=== PATIENT | female | born 1955 | race Caucasian/White ===

== ENCOUNTER 2016-12-11 21:02 | Emergency (ER) | payer MEDICARE, OTHER ==
--- NOTE | 2016-12-11 21:31 | ED ---
General Adult HPI - General Chief complaint: Fall Stated complaint: FALL Time Seen by Provider: 12/11/16 21:05 Source: patient, RN notes reviewed Mode of arrival: EMS Limitations: no limitations - History of Present Illness Initial comments: Patient is a pleasant 61-year-old female presenting to the emergency department following a fall. Incident occurred just prior to arrival. Patient tripped while carrying [place] food and landed on outstretched left arm. Patient has discomfort of her left upper arm. Discomfort increases with movement. No other area of injury. No head injury or loss of consciousness although patient did strike her nose. No chest pain or dyspnea. No neck or back pain. No abdominal pain. No other extremity injury. No history of injury to this area previously. - Related Data Home Medications Medication Instructions Recorded Confirmed Acetaminophen Tab [Tylenol Tab] 1,000 mg PO BID PRN 12/17/14 12/11/16 Alendronate Sodium 70 mg PO SA 12/17/14 12/11/16 Ascorbic Acid [Vitamin C] 1,000 mg PO DAILY 12/17/14 12/11/16 Aspirin 81 mg PO DAILY 12/17/14 12/11/16 Cyanocobalamin [Vitamin B-12] 1,000 mcg PO DAILY 12/17/14 12/11/16 Hydrochlorothiazide [Hydrodiuril] 25 mg PO DAILY 12/17/14 12/11/16 Ibuprofen [Motrin] 800 mg PO Q8H PRN 12/17/14 12/11/16 Magnesium 500 mg PO DAILY 12/17/14 12/11/16 Multivitamin/Iron/Folic Acid 1 tab PO DAILY 12/17/14 12/11/16 [Centrum Complete Multivit Tab] Omeprazole [PriLOSEC] 20 mg PO DAILY 12/17/14 12/11/16 Chlorthalidone 25 mg PO DAILY 12/11/16 12/11/16 Fluticasone Nasal [place] [Flonase 2 spr EA NOSTRIL DAILY PRN MDD ` 12/11/1612/11 Nasal [place]] Loratadine [Claritin] 10 mg PO DAILY 12/11/16 12/11/16 Previous Rx's Medication Instructions Recorded Hydrocodone/Acetaminophen [[place] 2 each PO Q6HR PRN #20 tab 12/11/16 5-325] Allergies Allergy/AdvReac Type Severity Reaction Status Date / Time morphine Allergy Itching Verified 12/11/16 21:22 oxycodone HCl Allergy Hallucinati Verified 12/11/16 21:22 [From OxyContin] ons Review of Systems ROS Statement: Those systems with pertinent positive or pertinent negative responses have been documented in the HPI. ROS Other: All systems not noted in ROS Statement are negative. Constitutional: Denies: fever Eyes: Denies: eye pain ENT: Denies: ear pain Respiratory: Denies: cough Cardiovascular: Denies: chest pain Endocrine: Denies: fatigue Gastrointestinal: Denies: abdominal pain Genitourinary: Denies: dysuria Musculoskeletal: Denies: back pain Skin: Denies: rash Neurological: Denies: headache Past Medical History Past Medical History: GERD/Reflux, Hypertension, Osteoarthritis (OA) Additional Past Medical History / Comment(s): MIGRAINE HEADACHE History of Any Multi-Drug Resistant Organisms: None Reported Past Surgical History: Back Surgery, Section, Tubal Ligation Additional Past Surgical History / Comment(s): back surgery X5 Past Anesthesia/Blood Transfusion Reactions: No Reported Reaction Past Psychological History: No Psychological Hx Reported Smoking Status: Former smoker Past Alcohol Use History: Occasional Past Drug Use History: None Reported - Past Family History Mother Family Medical History: Cancer Additional Family Medical History / Comment(s): LUNG CANCER General Exam Limitations: no limitations General appearance: alert, in no apparent distress Head exam: Present: atraumatic Eye exam: Present: normal appearance, PERRL ENT exam: Present: normal oropharynx Neck exam: Present: normal inspection. Absent: tenderness Respiratory exam: Present: normal lung sounds bilaterally Cardiovascular Exam: Present: regular rate, normal rhythm Expanded Peripheral pulses: 2+: Radial (R), Radial (L) GI/Abdominal exam: Present: soft. Absent: tenderness Extremities exam: Present: tenderness (Moderate tenderness left proximal humerus region. Distally the extremity is neurovascular intact.). Absent: full ROM (Decreased range of motion left shoulder secondary to pain) Back exam: Absent: tenderness Neurological exam: Present: alert. Absent: motor sensory deficit Psychiatric exam: Present: normal affect, normal mood Skin exam: Present: normal color Course Vital Signs 12/11/16 21:05 Temperature 96.8 F L Pulse Rate 81 Respiratory 18 Rate Blood Pressure 169/80 O2 Sat by Pulse 100 Oximetry Medical Decision Making - Medical Decision Making Patient reevaluated and updated. - Radiology Data Radiology results: image reviewed (X-ray left humerus shows suspected fracture. Tuberosity. There also appears to be fracture at the proximal humerus just inferior to the humeral head.) Disposition Clinical Impression: Proximal humerus fracture Disposition: HOME SELF-CARE Condition: Stable Instructions: Proximal Humerus Fracture (ED) Additional Instructions: Please follow-up with orthopedics in the beginning of the week. Use your sling. Ice to affected area. Return for increased pain, swelling, other areas of injury or concern or worsening symptoms. Prescriptions: Hydrocodone/Acetaminophen [[place] 5-325] 2 each PO Q6HR PRN #20 tab PRN Reason: Pain Referrals: Idris Kapadia DO [Primary Care Provider] - 1-2 days Time of Disposition: 22:37
--- NOTE | 2016-12-11 22:07 | XR ---
EXAMINATION TYPE: XR humerus LT DATE OF EXAM: 12/11/2016 CLINICAL HISTORY: pain TECHNIQUE: Frontal and lateral images of the left humerus are obtained. Examination is limited by p atient positioning. COMPARISON: None. FINDINGS: Examination is limited. Suspect fracture in the region of the greater tuberosity. This can be confirmed with CT. AC joint appears to be grossly intact as does the glenohumeral joint. IMPRESSION: Examination is limited. Suspect fracture in the region of the greater tuberosity. This can be confirm ed with CT.
[2016-12-11] MEDS ORDERED: HYDROcodone/APAP 5-325MG 1 EACH TAB PO STA (22:35)
[2016-12-11 23:24] VITALS: BP 100/56; PULSE 76; RESP 16; TEMP 96.9
== END 2016-12-11 23:34 | disposition home or self-care (01) ==
LOC: EC 21:02
DX: S42.202A Unspecified fracture of upper end of left humerus, initial encounter for closed fracture (principal); K21.9 Gastro-esophageal reflux disease without esophagitis; I10 Essential (primary) hypertension; M19.90 Unspecified osteoarthritis, unspecified site; Z88.5 Allergy status to narcotic agent; Z79.82 Long term (current) use of aspirin; Z79.899 Other long term (current) drug therapy; Z87.891 Personal history of nicotine dependence; W01.0XXA Fall on same level from slipping, tripping and stumbling without subsequent striking against object, initial encounter
CPT/HCPCS: 99284

== ENCOUNTER → 2017-02-21 | Outpatient (CLI) | payer MEDICARE ==
--- NOTE | 2017-02-21 14:42 | MR ---
EXAMINATION TYPE: MR knee LT wo con DATE OF EXAM: 02/21/2017 COMPARISON: NONE HISTORY: Left knee pain per order. Pain, swelling, and locking sensation for 2 months after twisting injury per patient. TECHNIQUE: Multiplanar, multisequence images of the left knee is performed without IV contrast. FINDINGS: MEDIAL MENISCUS: Anterior horn is intact without tear. Some faint central increased signal posterior horn of medial meniscus does not extend to articular surface. LATERAL MENISCUS: Anterior horn is intact without tear. Posterior horn shows marked diffuse increased signal with oblique linear cleft consistent with complex full-thickness meniscal tear along posterio r and lateral aspect. CRUCIATE LIGAMENTS: The anterior and posterior cruciate ligaments are intact and unremarkable. COLLATERAL LIGAMENTS: The medial collateral ligament and lateral collateral ligament complex are inta ct and unremarkable. EXTENSOR MECHANISM: Visualized quadriceps and patellar tendons are intact. EFFUSION: There is moderate size suprapatellar joint effusion. POPLITEAL CYST: There is a large popliteal/carlson cyst measuring 8.1 cm craniocaudal dimension on sagi ttal image 22 some fluid extends inferiorly suggesting leak. TRICOMPARTMENT SPACES: There is moderate tricompartment joint space loss. There is minimal spurring. CARTILAGE: There is chondromalacia patella with marked thinning of articular cartilage along posterio r patellar pole inferior aspect at site of most prominent joint space loss with near full-thickness c artilaginous loss is present. There is marked cartilaginous loss medial tibiofemoral compartment. BONE MARROW SIGNAL: There is heterogeneous increased T2 signal consistent osseous contusion involving the distal lateral femoral epicondyle. OTHER: No additional significant abnormality is appreciated. IMPRESSION: 1. Complex full-thickness tear posterior horn of lateral meniscus. 2. Intrasubstance tear posterior horn of medial meniscus. 3. Large leaking popliteal cyst. 4. Moderate tricompartment degenerative changes most prominent medial tibiofemoral and patellofemoral compartments. 5. Mild residual osseous contusion or bone marrow edema involving distal lateral femoral epicondyle. 6. Small to moderate-sized suprapatellar joint effusion.
== END | disposition home or self-care (01) ==
LOC: RADMRIMAIN 11:16
PROVIDERS: ATTEND Orthopaedic Surgery
DX: S83.282A Other tear of lateral meniscus, current injury, left knee, initial encounter (principal); S83.242A Other tear of medial meniscus, current injury, left knee, initial encounter; M66.0 Rupture of popliteal cyst

== ENCOUNTER → 2017-03-01 | Outpatient (CLI) | payer MEDICARE ==
[2017-03-01 10:07] LABS: EKG EKG PERFORMED
[2017-03-01 10:39] LABS: Basophils % (A) 1 %; CH 31.9; CHCM 36.4; Eosinophils # (A) 0.1 k/uL (0-0.7); Eosinophils % (A) 2 %; HCT 35.8 % (34.0-46.0); HDW 2.66; HGB 12.5 gm/dL (11.4-16.0); Luc # (Auto) 0.17; Luc % (Auto) 2; Lymphocytes # (A) 2.1 k/uL (1.0-4.8); Lymphocytes % (A) 28 %; MCH 30.7 pg (25.0-35.0); MCHC 34.7 g/dL (31.0-37.0); MCV 88.2 fL (80.0-100.0); Mean Platelet Volume 7.2; Monocytes # (A) 0.6 k/uL (0-1.0); Monocytes % (A) 8 %; Neutrophils # (A) 4.6 k/uL (1.3-7.7); Neutrophils % (A) 60 %; RBC 4.06 m/uL (3.80-5.40); RDW 13.8 % (11.5-15.5); WBC 7.6 k/uL (3.8-10.6); WBC (Perox) 7.43
[2017-03-01 10:41] LABS: Anion Gap 10 mmol/L; Carbon Dioxide 28 mmol/L (22-30); Chloride 100 mmol/L (98-107); Potassium 3.9 mmol/L (3.5-5.1); Sodium 138 mmol/L (137-145)
== END | disposition home or self-care (01) ==
LOC: LABPAT 09:51
PROVIDERS: ATTEND Orthopaedic Surgery
DX: Z01.810 Encounter for preprocedural cardiovascular examination (principal); Z01.818 Encounter for other preprocedural examination; M23.92 Unspecified internal derangement of left knee
CPT/HCPCS: 80051; 85025; 93005

== ENCOUNTER → 2017-09-25 | Outpatient (CLI) | payer MEDICARE | END | disposition home or self-care (01) | LOC: LABPAT 11:23 | PROVIDERS: ATTEND Orthopaedic Surgery | DX: Z01.812 Encounter for preprocedural laboratory examination (principal) | CPT/HCPCS: 87070 ==

== ENCOUNTER 2017-10-31 08:00 | Inpatient (IN) | payer MEDICARE ==
--- NOTE | 2017-10-30 09:07 | HP ---
HISTORY AND PHYSICAL CHIEF COMPLAINT: Left knee pain. HISTORY OF PRESENT ILLNESS: The patient is a 62-year-old retired female who presents with progressive left knee pain secondary to osteoarthrosis. It has worsened over the past 6 months. She has increased pain with standing from a seated position. She notes it severely limits her. She has had a previous arthroscopy in addition to injections with only partial temporary relief. PAST MEDICAL HISTORY: Significant for arthritis, osteoporosis, hypertension, reflux disease. PAST SURGICAL HISTORY: Significant for multiple previous back surgeries along with right knee arthroscopy. CURRENT MEDICATIONS: 1. Aspirin. 2. Fioricet. 3. Ibuprofen. 4. Flonase. 5. Fosamax. 6. Loratadine. 7. Prilosec. ALLERGIES: She has allergies to MORPHINE and OXYCODONE. FAMILY HISTORY: Negative. SOCIAL HISTORY: Significant for social alcohol use. She also notes she quit smoking in 1979. REVIEW OF SYSTEMS: Sixteen-point review of systems otherwise reviewed and is noncontributory. PHYSICAL EXAMINATION: On examination, the patient is approximately 5 feet 7 inches, 220 pounds of endomorphic habitus. HEENT exam is nonfocal. Neck is supple. She has painless passive motion of her left hip. Straight leg raise is negative. Active motion left knee -12 to 95 degrees of flexion. She has a moderate effusion. She is tender about the lateral joint line. Collaterals stable, Aldo's negative, Kkee's is equivocal. Active motion -12 to 95 degrees of flexion. She has genu valgum alignment. Her distal neurovascular exam appears to be intact in the left lower extremity. X-rays to include weightbearing notch, lateral and Merchant views of the left knee obtained in the office show severe lateral compartment narrowing. IMPRESSION: 1. Left knee severe lateral compartment osteoarthrosis. 2. Increased body mass index of 34.46. RECOMMENDATIONS: I talked to the patient at length regarding her condition and treatment options. At this point, she is quite symptomatic because of pain related to her osteoarthrosis despite extensive conservative measures. After thorough discussion, she opts to proceed with surgery. We will plan to proceed with left total knee arthroplasty. We will institute DVT prophylaxis postoperatively. MMODL / IJN: [id number] /
[~2017-10-31 08:00] MED LIST: ACETAMINOPHEN TAB 500 MG TAB PO ONE; DEXAMETHASONE SOD PHOSPHATE 10 MG/ML 1 ML VIAL IV ONE; MELOXICAM 7.5 MG TAB PO ONE; MIDAZOLAM 2 MG/2 ML VIAL IV PRN; ONDANSETRON 4 MG/2 ML VIAL IVP ONE; SCOPOLAMINE 1.5MG/72HR PATCH TRANSDERM ONE; TRANEXAMIC ACID 1,000 MG in SODIUM CHLORIDE 0.9% 50 ML IVPB ONE; ceFAZolin IN SWFI 2 GM/20 ML SYRINGE IVP ONE; fentaNYL (PF) 50 MCG/ML 2 ML AMP IV PRN
[2017-10-31] MEDS: LACTATED RINGERS 1,000 ML IV SCH (12:22)
[2017-10-31] MEDS ORDERED: ROPIVACAINE 1,100 MG, SODIUM CHLORIDE 0.9% 330 ML MISCELLANE PRN ×2 (13:13)
[2017-10-31] MEDS ORDERED: ROPIVACAINE 246.25 MG, EPINEPHrine 0.5 MG, KETOROLAC 30 MG, cloNIDine HCL/PF 80 MCG, WA... MISCELLANE ONE ×5 (14:11)
[2017-10-31] MEDS ORDERED: GLYCOPYRROLATE 0.2 MG/ML 2 ML VIAL ONE (14:42)
[2017-10-31] MEDS ORDERED: fentaNYL (PF) 50 MCG/ML 2 ML AMP ONE (14:42)
[2017-10-31] MEDS ORDERED: TRANEXAMIC ACID 1,000 MG/10 ML VIAL ONE (14:42)
[2017-10-31] MEDS ORDERED: NEOSTIGMINE 1 MG/ML 10 ML VIAL ONE (14:42)
[2017-10-31] MEDS ORDERED: HYDROmorphone (PF) 1 MG/ML ONE (14:42)
[2017-10-31] MEDS ORDERED: PROPOFOL 10 MG/ML 20 ML VIAL IV ONE (14:42)
[2017-10-31] MEDS ORDERED: SODIUM CHLORIDE 0.9% 100 ML BAG ONE (14:42)
[2017-10-31] MEDS ORDERED: SUCCINYLCHOLINE CHLORIDE 100 MG/5 ML SYR IV ONE (14:42)
[2017-10-31] MEDS ORDERED: LIDOCAINE 1% INJ 10MG/ML (20 ML MDV) ONE (14:42)
[2017-10-31] MEDS ORDERED: ROCURONIUM BROMIDE 10 MG/ML 10 ML VIAL IV ONE (14:42)
[2017-10-31] MEDS ORDERED: MIDAZOLAM 2 MG/2 ML VIAL ONE (14:42)
[2017-10-31] MEDS ORDERED: ceFAZolin 3,000 MG in SODIUM CHLORIDE 0.9% IRRIGATIO 3,000 ML IRRIGATION ONE (15:21)
[2017-10-31] MEDS ORDERED: HYDROmorphone 0.5 MG/0.5 ML SYRINGE IVP PRN ×2 (16:34)
[2017-10-31] MEDS ORDERED: ACETAMINOPHEN TAB 325 MG TAB PO PRN (16:34)
[2017-10-31] MEDS ORDERED: HYDROcodone/APAP 7.5-325MG 1 EACH TAB PO PRN (16:34)
[2017-10-31] MEDS ORDERED: NALOXONE 0.4 MG/ML 1 ML VIAL IV PRN (16:34)
[2017-10-31] MEDS ORDERED: MAGNESIUM HYDROXIDE 2,400 MG/10 ML CUP PO PRN (16:34)
[2017-10-31] MEDS ORDERED: ONDANSETRON 4 MG/2 ML VIAL IVP PRN (16:34)
--- NOTE | 2017-10-31 17:09 | P.OP ---
Date of Procedure: 10/31/17 Preoperative Diagnosis: Left knee severe tricompartmental osteoarthrosis Postoperative Diagnosis: Same Procedure(s) Performed: Left total knee arthroplasty-posterior stabilized-cemented Implants: Depuy Attune eyes 7 cemented posterior stabilized femoral component, size 6 cemented tibial component, 9 mm articular surface, 35 mm cemented patellar component. Anesthesia: GETA, regional, local Surgeon: David Hastings Parcel Contractor #1: Armando Lozada Estimated Blood Loss (ml): 50 Pathology: other (Bone fragments) Condition: stable Disposition: PACU Indications for Procedure: The patient is a 62-year-old female who presents with progressive left knee pain secondary to osteoarthrosis despite extensive conservative treatment. A discussion of the risks and benefits of operative intervention versus continued conservative measures was made with patient. She opted to proceed with surgery. Operative risks to include infection, neurovascular injury, development of blood clots, possible component loosening, possible component failure and need for subsequent procedures was discussed. Informed consent was obtained. Operative Findings: As below Description of Procedure: The patient was brought to the operating room, and after induction of general anesthesia the left lower extremity was prepped and draped in a normal fashion. The tourniquet was inflated to 270 mmHg. A longitudinal incision extending 3 finger breaths above the superior pole of the patella extending to the medial aspect the tibial tubercle was then made. Skin and subcutaneous tissues were divided sharply. Electrocautery was used for hemostasis. A medial parapatellar arthrotomy was then performed. The medial soft tissues to include the superficial and deep portions of the medial collateral ligament elevated subperiosteally. The patella was everted. A portion of the retropatellar fat pad was excised sharply. The lateral collateral as well as the popliteus was elevated subperiosteally off the lateral femoral upper condyle with electrocautery as she had a valgus deformity. The knee was flexed. The anterior cruciate ligament was sacrificed. Blunt retractors were placed. A starting hole was made in the distal femur 1 cm anterior to the posterior cruciate ligament origin. An intramedullary femoral guide was gently inserted planning on 5 valgus distal cut with 9 mm distal resection. The cutting block was pinned in place. The distal cut was then made. The posterior referencing sizing guide was utilized. I felt size 7 was most appropriate. 3 of external rotation was built into the system and verified off the trans-epicondylar axis and the posterior condyles. The cutting block was pinned in place. The anterior, posterior, and chamfer cuts were then made. The bone fragments were removed. The box guide was then placed. The box cut was made with a reciprocating saw the bone removed in one fragment. The trial size 7 posterior stabilized femoral component was then placed and was fully seated. There was good anterior to posterior medial to lateral fit. The distal peg holes were drilled. The trial component was then removed. Attention was then paid towards preparing the proximal tibia. An extra medullary guide was utilized in line with the tibial shaft and second metatarsal distally. A 3 posterior slope cutting block was utilized. I planned on 8 mm resection from the medial compartment. The cutting block was pinned in place. The proximal tibial cut was made. The bone was removed in one fragment. The tibia sized most appropriate size 6. The remnants of the medial and lateral menisci were excised at the capsular junction with electrocautery. The trial femoral and tibial components were placed along with a 9 mm articular surface. I was able to obtain full flexion and extension with good stability with varus and valgus stress. The tibial rotation was marked with electrocautery and lateral to medial one third of the tibial tubercle after several flexion and extension cycles. Attention was then paid towards preparing the patella. A patella reamer was utilized taking this down to 15 mm of bone stock. A good flush cut was made. The patella sized most appropriately 35 mm. The peg holes were drilled. The trial components placed. The knee was taken through range of motion. I had good patellofemoral tracking with no hands technique. The trial components were then removed. The tibia was prepared in the appropriate rotation with appropriate drill and keel punch. The posterior osteophytes off the distal femur were carefully removed with a curved osteotome. The bony surfaces were prepared with pulsatile lavage and dried. The flexion and extension gaps were checked and felt to be symmetric. The posterior soft tissues were injected with ropivacaine. The tibial component was then cemented in placed and was fully seated. Excess cement was removed. The femoral component was cemented in placed and was fully seated. Excess cement was removed. The trial articular surface was placed. The knee was put in full extension. The patella component was cemented place. After the cement had sufficiently hardened, the knee was again taken through range of motion. Again I was able to obtain full flexion and extension with good stability with varus and valgus stress. The trial articular surface was removed and the final 9 mm articular surface was placed. This was fully seated. Care was taken to avoid any soft tissue interposition. Pulsatile lavage was utilized. The tourniquet was deflated with a proximally 70 minutes total tourniquet time. The medial parapatellar arthrotomy was closed with #2 Ethibond suture. A drain was placed exiting laterally. Final hemostasis was obtained with electrocautery. The subcutaneous tissues were reapproximated interrupted 2-0 Vicryl sutures. The skin was reapproximated with 3-0 subcuticular strata fix suture. Skin tape and adhesive was applied. A sterile dressing was applied. The patient was awoken from general anesthesia and transferred to recovery room in good condition. Blood loss was estimated at 50 mL. No complications were incurred. Sponge and needle counts were correct at the end of the case.
--- NOTE | 2017-10-31 17:39 | XR ---
EXAMINATION TYPE: XR knee limited LT DATE OF EXAM: 10/31/2017 COMPARISON: NONE HISTORY: Postop knee surgery TECHNIQUE: 2 views FINDINGS: There is a total left knee prosthesis. Components appear in anatomic position. There is an anterior drain. IMPRESSION: No complicating process seen.
[2017-10-31 17:49] VITALS: BMI 36.8
[2017-10-31] MEDS: traMADol 50 MG TAB PO SCH (18:24)
[2017-10-31] MEDS: SENNOSIDES-DOCUSATE SODIUM 1 EACH TAB PO SCH (20:49)
--- NOTE | 2017-10-31 23:18 | CONS ---
CONSULTATION DATE OF CONSULTATION: October 31, 2017 REASON FOR CONSULTATION: Medical management requested by Dr. Hastings. CONSULTATION: This is a pleasant 62-year-old patient of Dr. Kapadia. Chronic stable medical conditions include GERD, hypertension, arthritis in other joints and migraines. The patient has undergone left total knee arthroplasty. Pain is controlled. Post procedure: No nausea, vomiting. No chest pain or short of breath. The patient has tolerated some supper. at the bedside. Denies any cardiac history. REVIEW OF SYSTEMS: CONSTITUTIONAL: None. HEENT none. Respiratory none. Cardiovascular none. Gastrointestinal heartburn. Genitourinary none. Musculoskeletal: Arthritic pain in other joints. Dermatological and hematologic, lymphatic none. Psychiatry none. Neurological none. PAST MEDICAL HISTORY: GERD, hypertension, osteoarthritis, migraines. PAST SURGICAL HISTORY: Back surgery, , tubal ligation, back surgery x5. SOCIAL HISTORY: The patient smoked for about 30 years. Stopped in 1999. Drinks anywhere from 12-18 beers a week. Lives with her . FAMILY HISTORY: Lung cancer. HOME MEDICATIONS: 1. Prilosec 20 mg a day. 2. Centrum Complete 1 tablet p.o. daily. 3. Magnesium 500 mg p.o. daily. 4. Claritin 10 mg p.o. daily. 5. Motrin 800 mg p.o. p.r.n. 6. Flonase 2 sprays each nostril daily p.r.n. 7. Vitamin B12 1000 mcg p.o. daily. 8. Chlorthalidone 25 mg p.o. daily. 9. Aspirin 81 mg p.o. daily. 10.Vitamin C 1000 mg p.o. daily. 11.Alendronate 70 mg p.o. on Saturdays. 12.Tylenol 1000 mg p.o. b.i.d. p.r.n. 13.Xarelto 10 mg p.o. daily. ALLERGIES: TO MORPHINE, OXYCODONE, PENICILLIN. PHYSICAL EXAMINATION: Temperature 97.4, pulse 77, respiratory rate 16, blood pressure 160/75, pulse ox 99% on room air. General appearance: Well built, BMI 36.8. Sitting on bed, comfortable. Eyes: Pupils are equal. Conjunctivae normal. HEENT: External appearance of nose and ears normal. Oral cavity normal. Neck: JVD not raised. Mass not palpable. Respiratory effort normal. Lungs are clear. Cardiovascular: 1st and 2nd sounds normal. No edema. ABDOMEN: Soft, nontender. Liver and spleen not palpable. Lymphatics: No lymph nodes palpable in neck or axillae. Psychiatry: Alert and oriented times three. Mood and affect normal. Neurological: Pupils equal. Cranial nerves grossly intact. Power and sensation grossly intact. Musculoskeletal: Dressing on the left knee. INVESTIGATIONS: None. ASSESSMENT: 1. Left total knee arthroplasty. 2. Gastroesophageal reflux disease. 3. Essential hypertension. 4. Primary osteoarthritis. 5. Obesity BMI 36.8. PLAN: Home medications are resumed. Pain control is in place. For DVT prophylaxis, patient is on Xarelto. Will have patient see a dietitian for weight loss measures. Care was discussed with the patient. Questions were answered. Thank you Dr. Hastings. Patient should follow up with Dr. Kapadia upon discharge. Copy to Dr. Kapadia. MMDEANL / SANKETN: [id number] /
[2017-11-01] MEDS: ceFAZolin IN SWFI 2 GM/20 ML SYRINGE IVP SCH ×2 (00:48→08:16)
[2017-11-01] MEDS: traMADol 50 MG TAB PO SCH ×5 (00:48→21:50)
[2017-11-01] MEDS: LACTATED RINGERS 1,000 ML IV SCH ×2 (07:34→21:51)
--- NOTE | 2017-11-01 07:35 | P.PN ---
Progress Note - Text Progress Note Date: 11/01/17 Postoperative day # 1 status post total knee arthroplasty, under spinal anesthesia, and adductor canal catheter placed for postoperative analgesia, currently at ropivacaine 0.2% 8 mL per hour and continuous infusion, visual analogue scale is 0/10, patient using oral pain medication for breakthrough pain. Assessment and plan= Acute postoperative pain, adductor canal catheter for pain control, pain is well controlled we'll continue the same management.
[2017-11-01 07:48] LABS: Basophils % (A) 0 %; Eosinophils % (A) 0 %; HCT 32.2 % (34.0-46.0); HGB 11.1 gm/dL (11.4-16.0); Lymphocytes # (A) 1.9 k/uL (1.0-4.8); Lymphocytes % (A) 14 %; MCH 30.7 pg (25.0-35.0); MCHC 34.3 g/dL (31.0-37.0); MCV 89.5 fL (80.0-100.0); Mean Platelet Volume 6.8; Monocytes # (A) 0.9 k/uL (0-1.0); Monocytes % (A) 7 %; Neutrophils % (A) 79 %; Platelet Count 290 k/uL (150-450); RDW 12.1 % (11.5-15.5)
[2017-11-01] MEDS: PANTOPRAZOLE 40 MG TABLET PO SCH (08:16)
[2017-11-01] MEDS: RIVAROXABAN 10 MG TAB PO SCH (08:16)
[2017-11-01] MEDS: LORATADINE 10 MG TAB PO SCH (08:16)
[2017-11-01] MEDS: CHLORTHALIDONE 25 MG TAB PO SCH (08:16)
[2017-11-01] MEDS: HYDROcodone/APAP 7.5-325MG 1 EACH TAB PO PRN ×3 (11:48→23:54)
[2017-11-01] MEDS: CYANOCOBALAMIN 500 MCG TAB PO SCH (11:49)
[2017-11-01] MEDS: ASCORBIC ACID 500 MG TAB PO SCH (11:49)
[2017-11-01] MEDS: MAGNESIUM OXIDE 400 MG TAB PO SCH (11:49)
[2017-11-01] MEDS: MULTIVITAMINS, THERA 1 EACH TAB PO SCH (11:49)
--- NOTE | 2017-11-01 12:03 | P.PN ---
Subjective Progress Note Date: 11/01/17 Principal diagnosis: Status post left total knee arthroplasty Patient seen today resting in her hospital chair, she appears comfortable. She' s ambulated with therapy. She notes some tightness in the leg occasionally. She denies any headaches, lightheadedness, chest pain or shortness of breath. Objective - Vital Signs Vital signs: Vital Signs Temp 97.8 F 11/01/17 07:35 Pulse 61 11/01/17 07:35 Resp 16 11/01/17 07:35 BP 113/75 11/01/17 07:35 Pulse Ox 97 11/01/17 07:35 Intake & Output 10/31/17 11/01/17 11/01/17 18:59 06:59 18:59 Intake Total 851 3138 Output Total 250 2150 1270 Balance 601 988 -1270 Weight 106.594 kg Intake: IV 851 Intake, IV Titration 978 Amount Lactated Ringers 1,000 ml 978 @ 50 mls/hr IV .Q20H KIMMIE Rx#:[id number] Oral 2160 Output: Drainage 180 120 Left Knee 180 120 Urine 200 1970 1150 2-way Urethral 1150 Estimated Blood Loss 50 Other: Voiding Method Indwelling Catheter Indwelling Catheter Indwelling Catheter # Voids 2 # Bowel Movements 0 - Exam Left lower extremity: Incision is clean, dry, and intact. The prineo tape is in good condition. There is minimal soft tissue swelling and ecchymosis surrounding the medial and lateral aspects of the incision. Calf is soft, no tenderness with palpation. Plantar flexion, dorsiflexion, EHL, FHL are intact. Sensory exam to light touch throughout the extremity is intact, dorsal pedis pulses 2+. - Labs CBC & Chem 7: 11/01/17 07:04 Labs: Abnormal Lab Results - Last 24 Hours (Table) 11/01/17 Range/Units 07:04 WBC 14.0 H (3.8-10.6) k/uL RBC 3.60 L (3.80-5.40) m/uL Hgb 11.1 L (11.4-16.0) gm/dL Hct 32.2 L (34.0-46.0) % Neutrophils # 11.0 H (1.3-7.7) k/uL Assessment and Plan Plan: Assessment: Postoperative day #1 status post left total knee arthroplasty Plan: Pain control, continue supportive oral medication GI and DVT prophylaxis, continue Xarelto 10 mg Continue her physical therapy Daily dressing changes/ice and elevate Encourage incentive spirometer Medical recommendations Discharge planning: Patient will be likely discharged home tomorrow Time with Patient: Less than 30
--- NOTE | 2017-11-01 18:58 | PN ---
PROGRESS NOTE DATE OF SERVICE: 11/01/2017 PRESENTING COMPLAINT: Left knee arthroplasty. INTERVAL HISTORY: Patient is status post left total knee arthroplasty, doing well. No nausea, vomiting. Pain is controlled. Did work with Therapy. REVIEW OF SYSTEMS: Done for constitutional, cardiovascular, GI, pulmonary; relevant findings as above. CURRENT MEDICATIONS: Reviewed. PHYSICAL EXAMINATION: Temperature 97.8, pulse 61, respiration 16, blood pressure 113/75, pulse ox 97% on room air. GENERAL APPEARANCE: Lying in bed, comfortable. EYES: Pupils equal. Conjunctivae normal. HEENT: External appearance of nose and ears normal. Oral cavity normal. NECK: JVD not raised. Mass not palpable. RESPIRATORY: Effort normal. Lungs are clear. CARDIOVASCULAR: First and second sounds normal. No edema. ABDOMEN: Soft, nontender. Liver and spleen not palpable. PSYCHIATRY: Alert and oriented x3. Mood and affect normal. INVESTIGATIONS: White count 14, hemoglobin 11.1. ASSESSMENT: 1. Left total knee arthroplasty. 2. Gastroesophageal reflux disease. 3. Essential hypertension. 4. Primary osteoarthritis. 5. Obesity; body mass index 36.8. PLAN: Patient is doing well. Continue current medication and treatment plan. MMODL / IJN: [id number] /
[2017-11-01] MEDS: SENNOSIDES-DOCUSATE SODIUM 1 EACH TAB PO SCH (20:46)
[2017-11-02] MEDS: traMADol 50 MG TAB PO SCH ×4 (07:51→21:12)
[2017-11-02] MEDS: HYDROcodone/APAP 7.5-325MG 1 EACH TAB PO PRN ×2 (07:52→23:49)
[2017-11-02] MEDS: PANTOPRAZOLE 40 MG TABLET PO SCH (07:52)
[2017-11-02] MEDS: RIVAROXABAN 10 MG TAB PO SCH (07:53)
[2017-11-02] MEDS: CHLORTHALIDONE 25 MG TAB PO SCH (07:53)
[2017-11-02] MEDS: LORATADINE 10 MG TAB PO SCH (07:53)
[2017-11-02 10:43] VITALS: RESP 16
[2017-11-02] MEDS ORDERED: HYDROmorphone 2 MG TAB PO PRN (11:16)
[2017-11-02] MEDS ORDERED: HYDROmorphone 4 MG TABLET PO PRN (11:17)
[2017-11-02] MEDS ORDERED: hydrOXYzine PAMOATE 25 MG CAP PO PRN (12:04)
--- NOTE | 2017-11-02 12:04 | US ---
EXAMINATION TYPE: US venous doppler duplex LE LT DATE OF EXAM: 11/02/2017 11:44 AM COMPARISON: NONE CLINICAL HISTORY: calf pain/swelling, s/p knee replacement. no h/o dvt SIDE PERFORMED: left TECHNIQUE: The lower extremity deep venous system is examined utilizing real time linear array sonog keysha with graded compression, doppler sonography and color-flow sonography. VESSELS IMAGED: External Iliac Vein (EIV) Common Femoral Vein Deep Femoral Vein Greater Saphenous Vein * Femoral Vein Popliteal Vein Small Saphenous Vein * Proximal Calf Veins (* superficial vessels) Left Leg: Appears negative for DVT, popiteal vein was already partially compressed due to swelling, but flow and complete compression were seen. IMPRESSION: No evidence for DVT at this time.
[2017-11-02] MEDS: MULTIVITAMINS, THERA 1 EACH TAB PO SCH (12:50)
[2017-11-02] MEDS: CYANOCOBALAMIN 500 MCG TAB PO SCH (12:50)
[2017-11-02] MEDS: MAGNESIUM OXIDE 400 MG TAB PO SCH (12:50)
[2017-11-02] MEDS: ASCORBIC ACID 500 MG TAB PO SCH (12:50)
--- NOTE | 2017-11-02 13:45 | P.PN ---
Subjective Progress Note Date: 11/02/17 Principal diagnosis: Status post left total knee arthroplasty Patient seen today resting in her hospital chair, she appears comfortable. She' s ambulated with therapy. Patient admits to nausea today and increase in pain. She denies any headaches, lightheadedness, chest pain or shortness of breath. Objective - Vital Signs Vital signs: Vital Signs Temp 98.5 F 11/02/17 13:00 Pulse 79 11/02/17 13:00 Resp 16 11/02/17 13:00 BP 117/75 11/02/17 13:00 Pulse Ox 98 11/02/17 13:00 Intake & Output 11/01/17 11/02/17 11/02/17 18:59 06:59 18:59 Intake Total 2400 480 417 Output Total 1270 1400 Balance 1130 -920 417 Weight 106.594 kg 106.594 kg Intake: Oral 2400 480 417 Output: Drainage 120 Left Knee 120 Urine 1150 1400 2-way Urethral 1150 Other: Voiding Method Indwelling Catheter Toilet Bedside Commode # Voids 1 1 1 - Exam Left lower extremity: Incision is clean, dry, and intact. The prineo tape is in good condition. There is minimal soft tissue swelling and ecchymosis surrounding the medial and lateral aspects of the incision. Calf is soft, no tenderness with palpation. Plantar flexion, dorsiflexion, EHL, FHL are intact. Sensory exam to light touch throughout the extremity is intact, dorsal pedis pulses 2+. - Labs CBC & Chem 7: 11/01/17 07:04 Assessment and Plan Plan: Assessment: Postoperative day #2 status post left total knee arthroplasty Plan: Pain control, continue supportive oral medication GI and DVT prophylaxis, continue Xarelto 10 mg Continue her physical therapy Daily dressing changes/ice and elevate 500cc fluid bolus of lacted ringers Encourage incentive spirometer Medical recommendations Discharge planning: Patient will be likely discharged home tomorrow Time with Patient: Less than 30
[2017-11-02] MEDS: LACTATED RINGERS 500 ML IV SCH ×2 (14:31→19:46)
[2017-11-02] MEDS: LACTATED RINGERS 1,000 ML IV SCH (18:19)
--- NOTE | 2017-11-02 18:23 | PN ---
PROGRESS NOTE DATE OF SERVICE: 11/02/2017 PRESENTING COMPLAINT: Left knee arthroplasty. INTERVAL HISTORY: Patient is status post left knee surgery. Some pain around the left knee. Doppler ultrasound was ordered by Orthopedics. No nausea, vomiting, tolerating a diet. Did work with Therapy. REVIEW OF SYSTEMS: Done for constitutional, cardiovascular, GI, pulmonary, musculoskeletal; relevant findings as above. CURRENT MEDICATIONS: Reviewed. EXAMINATION: Temperature 98.5, pulse 79, respirations 16, blood pressure 117/75, pulse ox 98% on room air. GENERAL APPEARANCE: Sitting in bed, comfortable. EYES: Pupils equal. Conjunctivae normal. HEENT: External nose and ears normal. Oral cavity normal. NECK: JVD not raised. Mass not palpable. RESPIRATORY: Effort normal. Lungs are clear. CARDIOVASCULAR: First and second heart sounds normal. No edema. ABDOMEN: Soft, nontender. Liver and spleen not palpable. PSYCHIATRY: Alert and oriented x3. Mood and affect normal. INVESTIGATIONS: White count 14, hemoglobin 11.1. ASSESSMENT: 1. Left total knee arthroplasty. 2. Gastroesophageal reflux disease. 3. Essential hypertension. 4. Primary osteoarthritis. 5. Obesity, BMI of 36.8. PLAN: The patient probably needs antispasmodic. Doppler ultrasound was negative for a DVT. Otherwise, patient is doing well. Care was discussed with the patient and . MMODL / IJN: [id number] /
[2017-11-02] MEDS: SENNOSIDES-DOCUSATE SODIUM 1 EACH TAB PO SCH (21:13)
[2017-11-03] MEDS: HYDROcodone/APAP 7.5-325MG 1 EACH TAB PO PRN (06:19)
[2017-11-03] MEDS: LACTATED RINGERS 1,000 ML IV SCH (06:20)
[2017-11-03 07:13] LABS: Basophils % (A) 0 %; Eosinophils # (A) 0.1 k/uL (0-0.7); Eosinophils % (A) 1 %; HCT 30.4 % (34.0-46.0); HGB 10.6 gm/dL (11.4-16.0); Lymphocytes # (A) 2.1 k/uL (1.0-4.8); Lymphocytes % (A) 23 %; MCH 30.7 pg (25.0-35.0); MCHC 34.9 g/dL (31.0-37.0); MCV 87.9 fL (80.0-100.0); Mean Platelet Volume 6.8; Monocytes # (A) 0.8 k/uL (0-1.0); Monocytes % (A) 9 %; Neutrophils # (A) 5.9 k/uL (1.3-7.7); Neutrophils % (A) 65 %; Platelet Count 285 k/uL (150-450); RBC 3.45 m/uL (3.80-5.40); RDW 11.9 % (11.5-15.5); WBC 9.1 k/uL (3.8-10.6)
[2017-11-03 07:24] VITALS: BP 129/72; PULSE 80; TEMP 97.8
[2017-11-03] MEDS: CHLORTHALIDONE 25 MG TAB PO SCH (08:24)
[2017-11-03] MEDS: LORATADINE 10 MG TAB PO SCH (08:24)
[2017-11-03] MEDS: PANTOPRAZOLE 40 MG TABLET PO SCH (08:24)
[2017-11-03] MEDS: RIVAROXABAN 10 MG TAB PO SCH (08:24)
[2017-11-03] MEDS: traMADol 50 MG TAB PO SCH ×2 (08:25→11:59)
--- NOTE | 2017-11-03 10:12 | P.PN ---
Subjective Progress Note Date: 11/03/17 Principal diagnosis: Status post left total knee arthroplasty Patient seen today resting in her hospital chair, she appears comfortable. Patient states she is doing a lot better today.. She denies any headaches, lightheadedness, chest pain or shortness of breath. Objective - Vital Signs Vital signs: Vital Signs Temp 97.8 F 11/03/17 07:00 Pulse 80 11/03/17 07:00 Resp 16 11/03/17 07:00 BP 129/72 11/03/17 07:00 Pulse Ox 99 11/03/17 07:00 Intake & Output 11/02/17 11/03/17 11/03/17 18:59 06:59 18:59 Intake Total 917 2758 Balance 917 2758 Intake: Intake, IV Titration 500 1078 Amount Lactated Ringers 1,000 ml 1078 @ 50 mls/hr IV .Q20H KIMMIE Rx#:[id number] Lactated Ringers 500 ml @ 500 999 mls/hr IV .Q31M KIMMIE Rx#:[id number] Oral 417 1680 Other: Voiding Method Toilet Bedside Commode # Voids 2 1 # Bowel Movements 0 # Emeses 0 - Exam Left lower extremity: Incision is clean, dry, and intact. The prineo tape is in good condition. There is minimal soft tissue swelling and ecchymosis surrounding the medial and lateral aspects of the incision. Calf is soft, no tenderness with palpation. Plantar flexion, dorsiflexion, EHL, FHL are intact. Sensory exam to light touch throughout the extremity is intact, dorsal pedis pulses 2+. - Labs CBC & Chem 7: 11/03/17 06:22 Labs: Abnormal Lab Results - Last 24 Hours (Table) 11/03/17 Range/Units 06:22 RBC 3.45 L (3.80-5.40) m/uL Hgb 10.6 L (11.4-16.0) gm/dL Hct 30.4 L (34.0-46.0) % Assessment and Plan Plan: Assessment: Postoperative day #3 status post left total knee arthroplasty Plan: Pain control, continue supportive oral medication GI and DVT prophylaxis, continue Xarelto 10 mg Continue her physical therapy Daily dressing changes/ice and elevate Encourage incentive spirometer Medical recommendations Discharge planning: Patient will be discharged home today Time with Patient: Less than 30
--- NOTE | 2017-11-03 10:17 | P.DS ---
Providers Date of admission: 10/31/17 11:46 Expected date of discharge: 11/03/17 Attending physician: David Hastings Consults: 10/31/17 16:36 Consult Physician Routine Consulting Provider: Idris Kapadia Consult Reason/Comments: Medical Management Do you want consulting provider notified?: Yes 10/31/17 17:25 Consult Physician Routine Consulting Provider: Efe Meredith Consult Reason/Comments: medical management Do you want consulting provider notified?: Yes Primary care physician: Idris Manzano [facility] Course: Date of admission: 10/31/2017 Date of discharge: 11/03/2017 Admission diagnosis: Status post left total knee arthroplasty Discharge diagnosis: Same Attending physician: Dr. Hastings Surgical procedures: Left total knee arthroplasty Brief history: Patient is a 62-year-old female with a history of progressive primary left knee osteoarthritis. At this point patient has failed conservative treatment measures and has opted to proceed with a elective left total knee arthroplasty. Hospital course: Details of patient's surgery can be found in operative report. Patient tolerated the procedure well and was subsequently transported to orthopedic floor. Patient's orthopeidc and medical care was provided daily. Patient had daily laboratory tests performed for evaluation of overall blood counts. Patient had daily physical therapy to include strengthening range of motion as well as education with walker ambulation. Patient was treated with Xarelto for their postoperative DVT prophylaxis during their inpatient stay. Patient was noted to have a relatively uneventful postoperative course. Patient reported satisfactory pain control with oral pain medications by postoperative day 0. Patient showed satisfactory progress with physical therapy. Patient moved steadily through the program and had no difficulty meeting the goals by postoperative day 3. Given patient's otherwise satisfactory course and having met physical therapy goals, plan is to discharge patient home on postoperative day 3. Discharge condition/disposition: Patient will be discharged home in stable condition. Discharge medications: Instructions are given on resumption of patient's normal daily medications per primary care recommendation, in addition patient will be prescribed Midway 7.5 mg/325 mg, tramadol 50 mg, Colace 100 mg, Xarelto 10 mg. Discharge instructions: 1. Wound care and infection precautions, keep incision dry and covered while showering, no lotions, creams, moisturizers. No soaking, tubs, pools, hottubs. Do not scrub over the incision. 2. Weight-bear as tolerated with walker / cane until follow-up. 3. Ice and elevate when necessary. Do not exceed 20 minutes per hour with ice pack. 4. Utilize compression sleeve until seen at first follow up appointment. 5. Visiting nursing care. 6. Home physical therapy including home CPM. 7. Pain meds and anticoagulants per prescription. 8. Pain medication has potential to cause constipation. Increase oral fluid and fiber intake. Contact primary care provider if you have not had a bowel movement within 48 hours after discharge 9. No anti-inflammatory medication until discussed at first post operative visit, this including Motrin, Aleve, Mobic, Diclofenac,. 10. Follow up in office at 2 weeks postop with Jose Lozada PA-C 11. Follow up with your primary care doctor 7-10 days after discharge. 12. Contact [facility] with any questions, . Procedures: Left total knee arthroplasty Patient Condition at Discharge: Good Plan - Discharge Summary Discharge Rx Participant: Yes New Discharge Prescriptions: New Rivaroxaban [Xarelto] 10 mg PO DAILY #12 tab Docusate [Colace] 100 mg PO DAILY #30 capsule HYDROcodone/APAP 7.5-325MG [Midway 7.5] 1 - 2 each PO Q6HR PRN #60 tab PRN Reason: Pain traMADol HCl [Ultram] 50 mg PO Q6H PRN #40 tab PRN Reason: Pain No Action Acetaminophen Tab [Tylenol Tab] 1,000 mg PO BID PRN PRN Reason: Pain Alendronate Sodium 70 mg PO SA Multivitamin/Iron/Folic Acid [Centrum Complete Multivit Tab] 1 tab PO DAILY Magnesium 500 mg PO DAILY Omeprazole [PriLOSEC] 20 mg PO DAILY Cyanocobalamin [Vitamin B-12] 1,000 mcg PO DAILY Aspirin 81 mg PO DAILY Ascorbic Acid [Vitamin C] 1,000 mg PO DAILY Fluticasone Nasal Garrochales [Flonase Nasal Garro[place]ales] 2 spr EA NOSTRIL DAILY PRN MDD ` PRN Reason: Allergy Symptoms Loratadine [Claritin] 10 mg PO DAILY Chlorthalidone 25 mg PO DAILY Discharge Medication List Acetaminophen Tab [Tylenol Tab] 1,000 mg PO BID PRN 12/17/14 [History] Alendronate Sodium 70 mg PO SA 12/17/14 [History] Ascorbic Acid [Vitamin C] 1,000 mg PO DAILY 12/17/14 [History] Aspirin 81 mg PO DAILY 12/17/14 [History] Cyanocobalamin [Vitamin B-12] 1,000 mcg PO DAILY 12/17/14 [History] Magnesium 500 mg PO DAILY 12/17/14 [History] Multivitamin/Iron/Folic Acid [Centrum Complete Multivit Tab] 1 tab PO DAILY 01/24 [History] Omeprazole [PriLOSEC] 20 mg PO DAILY 12/17/14 [History] Chlorthalidone 25 mg PO DAILY 12/11/16 [History] Fluticasone Nasal [place] [Flonase Nasal [place]] 2 spr EA NOSTRIL DAILY PRN MDD ` 12/11/16 [History] Loratadine [Claritin] 10 mg PO DAILY 12/11/16 [History] Rivaroxaban [Xarelto] 10 mg PO DAILY #12 tab 10/31/17 [Rx] Docusate [Colace] 100 mg PO DAILY #30 capsule 11/03/17 [Rx] HYDROcodone/APAP 7.5-325MG [Midway 7.5] 1 - 2 each PO Q6HR PRN #60 tab 11/03/17 [ Rx] traMADol HCl [Ultram] 50 mg PO Q6H PRN #40 tab 11/03/17 [Rx] Follow up Appointment(s)/Referral(s): Idris Kapadia DO [Primary Care Provider] - 1 Week (office will call to set up appointment) [facility], [NON-STAFF] - Armando Lozada PAC [PHYSICIAN [employer] SCIENCE TAXONOMIST] - 11/15/17 2:40 pm Activity/Diet/Wound Care/Special Instructions: Orthopedic Discharge Instructions: 1. Wound care and infection precautions, keep incision dry and covered while showering, no lotions, creams, moisturizers. No soaking, pools, hot tubs. Do not scrub over incision. 2. Weight-bear as tolerated with walker / cane until follow-up. 3. Ice and elevate when necessary. Do not exceed 20 minutes per hour with ice pack. 4. Utilize compression sleeve until seen at first follow up appointment. 5. Visiting nursing care. 6. Home physical therapy including home CPM. 7. Pain meds and anticoagulants per prescription. 8. Pain medication has potential to cause constipation. Increase oral fluid and fiber intake. Contact primary care provider if you have not had a bowel movement within 48 hours after discharge. 9. No anti-inflammatory medication until discussed at first post operative visit, this including Motrin, Aleve, Mobic, Diclofenac. 10. Follow up in office at 2 weeks postop with Jose Lozada PA-C 11. Follow up with your primary care doctor 7-10 days after discharge. 12. Contact [facility] with any questions, . Discharge Disposition: HOME WITH HOME HEALTH SERVICES
[2017-11-03] MEDS: MULTIVITAMINS, THERA 1 EACH TAB PO SCH (12:04)
[2017-11-03] MEDS: MAGNESIUM OXIDE 400 MG TAB PO SCH (12:04)
[2017-11-03] MEDS: ASCORBIC ACID 500 MG TAB PO SCH (12:04)
[2017-11-03] MEDS: CYANOCOBALAMIN 500 MCG TAB PO SCH (12:04)
--- NOTE | 2017-11-03 12:24 | PN ---
PROGRESS NOTE DATE OF SERVICE: 11/03/2017 PRESENTING COMPLAINT: Left knee surgery. INTERVAL HISTORY: Patient is status post left knee surgery. Pain is well controlled. Walking in the hallway with therapy, doing rather well. No nausea, vomiting, did tolerate her breakfast well this morning, passing flatus. REVIEW OF SYSTEMS: Done for constitutional, cardiovascular, GI, pulmonary, musculoskeletal; relevant findings as above. CURRENT MEDICATIONS: Reviewed. PHYSICAL EXAMINATION: Temperature is 97.8, pulse 80, respiration 16, blood pressure 129/72, pulse ox 99% on room air. GENERAL APPEARANCE: Comfortable. EYES: Pupils equal, conjunctivae are normal. HEENT: External appearance of nose and ears normal, oral cavity normal. NECK: JVD not raised. Mass not palpable. RESPIRATORY:: Effort normal. Lungs are clear. CARDIOVASCULAR: First and second sounds are normal, no edema. ABDOMEN: Soft, nontender. Liver and spleen not palpable. PSYCHIATRY: Alert and oriented x3. Mood and affect normal. INVESTIGATIONS: White count 9.1, hemoglobin 10.6. ASSESSMENT: 1. Left total knee arthroplasty. 2. Gastroesophageal reflux disease. 3. Essential hypertension. 4. Primary osteoarthritis. 5. Obesity, body mass index 36.8. PLAN: Patient doing well, if discharged, should follow with the family doctor. MMODL / IJN: [id number] /
== END 2017-11-03 12:21 | disposition home health service (06) | DRG 470 ==
LOC: 6ICU 11:46 → 3SUR 16:50
PROVIDERS: ADMIT Orthopaedic Surgery; ATTEND Orthopaedic Surgery
PROC: 0SRD0J9 Replacement of Left Knee Joint with Synthetic Substitute, Cemented, Open Approach (ICD-10-PCS; principal; 2017-10-31 13:35)
DX: M17.12 Unilateral primary osteoarthritis, left knee (principal); E66.9 Obesity, unspecified; Z68.36 Body mass index [BMI] 36.0-36.9, adult; G89.18 Other acute postprocedural pain; M21.062 Valgus deformity, not elsewhere classified, left knee; M81.0 Age-related osteoporosis without current pathological fracture; I10 Essential (primary) hypertension; K21.9 Gastro-esophageal reflux disease without esophagitis; G43.909 Migraine, unspecified, not intractable, without status migrainosus; Z71.3 Dietary counseling and surveillance; Z79.83 Long term (current) use of bisphosphonates; Z79.82 Long term (current) use of aspirin; Z79.51 Long term (current) use of inhaled steroids; Z79.899 Other long term (current) drug therapy; Z87.891 Personal history of nicotine dependence; Z87.39 Personal history of other diseases of the musculoskeletal system and connective tissue; Z98.51 Tubal ligation status; Z88.5 Allergy status to narcotic agent; Z80.1 Family history of malignant neoplasm of trachea, bronchus and lung
CPT/HCPCS: 85025; 88300

== ENCOUNTER → 2018-10-11 | Outpatient (CLI) | payer MEDICARE | END | disposition home or self-care (01) | LOC: LABPAT 10:53 | PROVIDERS: ATTEND Orthopaedic Surgery | DX: Z01.812 Encounter for preprocedural laboratory examination (principal) | CPT/HCPCS: 87070 ==

== ENCOUNTER → 2018-10-29 | Outpatient (CLI) | payer MEDICARE ==
--- NOTE | 2018-10-30 09:05 | BD ---
EXAMINATION TYPE: Axial Bone Density DATE OF EXAM: 10/29/2018 COMPARISON: 2016 exam CLINICAL HISTORY: Postmenopausal female. Osteoporosis screening. Height: 5 FT 7 IN Weight: 241 FRAX RISK QUESTIONS: History of Fracture in Adulthood: YES Secondary Osteoporosis: RISK FACTORS HISTORY OF: Surgery to Spine/Hip(right/left)/Wrist (right/left): SPINE SURG X5 When: [id number] Family History of Osteoporosis: YES Active: YES Postmenopausal woman: AGE 48 Lost more than 2 inches in height since high school: YES MEDICATIONS: Additional Medications: HYDROCHLOROTHIAZIDE,PRILOSEC, FOSAMAX Additional History: EXAM MEASUREMENTS: Bone mineral density about the R hip (g/cm2): 0.872 Bone mineral density about the L hip (g/cm2): 0.892 T Score values are as follows: -----R Neck: -1.2 -----L Neck: -1.0 -----R Total: -0.7 -----L Total: -0.6 Bone mineral density has: INCREASED 2.4 % SINCE STUDY OF 2016 Bone mineral density about the L Wrist (g/cm2): 0.678 T Score values are as follows: -----Dist. R+U: 0.7 -----Prox. R+U: 0.2 -----Radius total: 0.1 FIRST TIME FOREARM HAS BEEN DONE IMPRESSION: Osteopenia (T Score between -2.5 and -1) with regards to the right femur. There is slightly increased risk of fracture and the patient may be considered for treatment. Re-Screen 2-5 years. NOTE: T-SCORE=SD OF THE YOUNG ADULT MEAN.
--- NOTE | 2018-10-30 14:40 | MM ---
Reason for exam: screening (asymptomatic). Last mammogram was performed 2 years and 7 months ago. History: Patient is postmenopausal and history of other cancer. Took hormonal contraceptives for 30 years. Physical Findings: A clinical breast exam by your physician is recommended on an annual basis and results should be correlated with mammographic findings. MG 3D Screening Mammo W/Cad Bilateral CC and MLO view(s) were taken. Prior study comparison: April 15, 2016, bilateral MG 3d screening mammo w/cad. April 14, 2015, bilateral MG screening mammo w CAD. There are scattered fibroglandular densities. No suspicious abnormality. No significant changes when compared with prior studies. ASSESSMENT: Negative, BI-RAD 1 RECOMMENDATION: Routine screening mammogram of both breasts in 1 year.
== END | disposition home or self-care (01) ==
LOC: RADMAMWWP 15:01
PROVIDERS: ATTEND Obstetrics & Gynecology
DX: Z12.31 Encounter for screening mammogram for malignant neoplasm of breast (principal); M85.851 Other specified disorders of bone density and structure, right thigh; M85.852 Other specified disorders of bone density and structure, left thigh; Z78.0 Asymptomatic menopausal state
CPT/HCPCS: 77063; 77067; 77080

== ENCOUNTER 2018-10-30 09:05 | Inpatient (IN) | payer MEDICARE ==
--- NOTE | 2018-10-29 09:00 | HP ---
HISTORY AND PHYSICAL CHIEF COMPLAINT: Right knee pain. HISTORY OF PRESENT ILLNESS: The patient is a 63-year-old female who presents with progressive right knee pain secondary to osteoarthrosis, worsening over the past several months. She has tried previous medications and injections with only partial temporary relief. PAST MEDICAL HISTORY: Significant for arthritis and hypertension in addition to reflux disease. PAST SURGICAL HISTORY: Significant for multiple previous lumbar surgeries, left total knee arthroplasty and right knee arthroscopy. CURRENT MEDICATIONS: 1. Aspirin. 2. Fioricet. 3. Hydrochlorothiazide. 4. Fosamax. 5. Loratadine. 6. Prilosec. ALLERGIES: She has allergies to MORPHINE and OXYCODONE. FAMILY HISTORY: Family history is noncontributory. SOCIAL HISTORY: Significant for social alcohol use. She quit smoking in 1979. REVIEW OF SYSTEMS: Sixteen point review of systems otherwise reviewed and is noncontributory. PHYSICAL EXAMINATION: On examination, the patient is approximately 5 feet 7 inches, 220 pounds of endomorphic habitus. HEENT exam is nonfocal. Neck is supple. She has painless passive motion of her right hip. Straight leg raise is negative. Active motion right knee -12 to 120 degrees of flexion. She has a moderate effusion. She is tender about the lateral joint line. Collaterals are stable. Aldo's negative, Keke's is equivocal. She has genu valgum alignment. Her distal neurovascular exam appears intact in the right lower extremity. Weightbearing notch lateral and Merchant views of the right knee obtained in the office show severe lateral and patellofemoral compartment narrowing. IMPRESSION: Right knee severe osteoarthrosis. RECOMMENDATIONS: I talked to the patient at length regarding her condition along with treatment options. At this point she is quite limited because of pain related to her osteoarthrosis. After a thorough discussion, she opts to proceed with surgery. We will plan to proceed with right total knee arthroplasty. We will institute DVT prophylaxis postoperatively. MMODL / IJN: [id number] /
[~2018-10-30 09:05] MED LIST changes: +LIDOCAINE 1% 20 ML VIAL (10MG/ML) FOR IV START INTRADERMA PRN; +TRANEXAMIC ACID 1,000 MG in SODIUM CHLORIDE 0.9% 100 ML IVPB ONE; -TRANEXAMIC ACID 1,000 MG in SODIUM CHLORIDE 0.9% 50 ML IVPB ONE; -fentaNYL (PF) 50 MCG/ML 2 ML AMP IV PRN
[2018-10-30] MEDS ORDERED: ROPIVACAINE 246.25 MG, EPINEPHrine 0.5 MG, KETOROLAC 30 MG, WATER FOR INJECTION,STERILE... MISCELLANE ONE ×4 (09:52)
[2018-10-30] MEDS: LACTATED RINGERS 1,000 ML IV SCH (10:09)
[2018-10-30] MEDS ORDERED: MIDAZOLAM (PF) 2 MG/2 ML VIAL IV ONE (10:18)
[2018-10-30] MEDS ORDERED: ROCURONIUM BROMIDE 10 MG/ML 10 ML VIAL IV ONE (10:38)
[2018-10-30] MEDS ORDERED: GLYCOPYRROLATE 0.2 MG/ML 2 ML VIAL ONE (10:38)
[2018-10-30] MEDS ORDERED: MIDAZOLAM 2 MG/2 ML VIAL ONE (10:38)
[2018-10-30] MEDS ORDERED: NEOSTIGMINE 1 MG/ML 10 ML VIAL ONE (10:38)
[2018-10-30] MEDS ORDERED: TRANEXAMIC ACID 1,000 MG/10 ML VIAL ONE (10:38)
[2018-10-30] MEDS ORDERED: SODIUM CHLORIDE 0.9% 100 ML BAG ONE (10:38)
[2018-10-30] MEDS ORDERED: PROPOFOL 10 MG/ML 20 ML VIAL IV ONE (10:38)
[2018-10-30] MEDS ORDERED: SODIUM CHLORIDE 0.9% 100 ML with CLINDAMYCIN 900 MG IV ONE ×2 (10:38)
[2018-10-30] MEDS ORDERED: HYDROmorphone (PF) 1 MG/ML ONE (10:38)
[2018-10-30] MEDS ORDERED: SUCCINYLCHOLINE CHLORIDE 100 MG/5 ML SYR IV ONE (10:38)
[2018-10-30] MEDS ORDERED: LIDOCAINE 1% INJ 10MG/ML (20 ML MDV) ONE (10:38)
[2018-10-30] MEDS ORDERED: fentaNYL (PF) 50 MCG/ML 2 ML AMP ONE (10:38)
[2018-10-30] MEDS ORDERED: CLINDAMYCIN 600 MG in SODIUM CHLORIDE 0.9% 1,000 ML IRRIGATION ONE (11:21)
[2018-10-30] MEDS ORDERED: NALOXONE 0.4 MG/ML 1 ML VIAL IV PRN (12:12)
[2018-10-30] MEDS ORDERED: ACETAMINOPHEN TAB 325 MG TAB PO PRN (12:12)
[2018-10-30] MEDS ORDERED: HYDROcodone/APAP 7.5-325MG 1 EACH TAB PO PRN (12:12)
[2018-10-30] MEDS ORDERED: ONDANSETRON 4 MG/2 ML VIAL IVP PRN (12:12)
[2018-10-30] MEDS ORDERED: HYDROmorphone 1 MG/ML 1 ML SYRINGE IVP PRN (12:12)
[2018-10-30] MEDS ORDERED: MAGNESIUM HYDROXIDE 2,400 MG/10 ML CUP PO PRN (12:12)
--- NOTE | 2018-10-30 12:39 | P.OP ---
Date of Procedure: 10/30/18 Preoperative Diagnosis: Right knee tricompartmental osteoarthrosis Postoperative Diagnosis: Same Procedure(s) Performed: Right total knee gsnxejbrmagi-anlcabdi-sksmmxmqc stabilized Implants: Depuy Attune size 7 cemented femoral component, size 6 cemented tibial component, 10 mm articular surface, 35 mm cemented patellar component. This is a posterior stabilized implant. Anesthesia: GETA, regional, local Surgeon: David Hastings Heeler #1: Armando Lozada Estimated Blood Loss (ml): 50 Pathology: other (Bone fragments) Condition: stable Disposition: PACU Indications for Procedure: The patient is a 63-year-old female presents with progressive right knee pain secondary to osteoporosis despite conservative measures. A discussion of the risks and benefits of operative intervention versus continued conservative measures was made with patient. She opted to proceed with surgery. Operative risks to include infection, neurovascular injury, development of blood clots, possible fracture, possible component loosening and failure and need for subsequent procedures was discussed. Informed consent was obtained. Operative Findings: As below Description of Procedure: The patient was brought to the operating room, and after induction of spinal anesthesia the right lower extremity was prepped and draped in a normal fashion. The tourniquet was inflated to 270 mmHg. A longitudinal incision extending 3 finger breaths above the superior pole of the patella extending to the medial aspect the tibial tubercle was then made. The skin and subcutaneous tissues wer e divided sharply. Electrocautery was used for hemostasis. A medial parapatellar arthrotomy was then performed. The medial soft tissues to include the superficial and deep portions of the medial collateral ligament as well as the medial hamstring tendons were elevated subperiosteally. The patella was everted. The knee was flexed. The popliteus and lateral collateral elevated subperiosteally off the lateral femoral epicondyle to help with balancing. A portion of the retropatellar fat pad was excised sharply. The anterior cruciate ligament was sacrificed. A starting hole was made in the distal femur 1 cm anterior to the posterior cruciate origin. An intramedullary femoral guide was gently inserted planning on 5 valgus distal cut with 9 mm distal resection. The cutting block was pinned in place. The distal cut was then made. The posterior referencing sizing guide was utilized. 3 of external rotation was built into the system and verified off the trans-epicondylar axis and the posterior condyles. I felt size[] was most appropriate. The cutting block was pinned in place. The anterior, posterior, and chamfer cuts were then made. The bone fragments were removed. The box cut was made with the appropriate guide. The bone was removed in one fragment. The trial size 7 femoral component was then placed and was fully seated. There was good anterior to posterior and medial to lateral fit. The distal peg holes were then drilled. The trial component was then removed. Attention was then paid towards preparing the proximal tibia. An extra medullary guide was utilized in line with the tibial shaft and second metatarsal distally. A 3 posterior slope was planned. I planned on 7 mm resection from the medial compartment. The cutting block was pinned in place. The proximal tibial cut was then made. The bone was removed in one fragment. The remnants of the medial and lateral menisci were excised the capsule junction with electrocautery. The tibia sized most appropriately at size 6. The posterior osteophytes off the distal femur were carefully removed with a curved osteotome. The trial tibial and femoral components were placed along with a 10 millimeters articular surface. I was able to obtain full flexion and extension with good stability with varus and valgus stress. After several flexion and extension cycles, the tibial rotation was marked with electrocautery in line with the medial one third of the tibial tubercle. Attention was then paid towards preparing the patella. A patella reamer was utilized taking this down to 14 mm of bone stock. A good flush cut was made. The patella sized most appropriately at 35 millimeters. The peg holes were then drilled. The trial component was placed. The knee was taken through a range of motion. I had good patellofemoral tracking with no hands technique. The trial components were then removed. The tibia was prepared in the appropriate rotation with appropriate drill and keel punch. The flexion and extension gaps were checked and felt to be symmetric. The posterior soft tissues were injected with ropivacaine. The bony surfaces were prepared with pulsatile lavage and dried. The deep tibial component was then cemented in place and was fully seated. Excess cement was removed. The femoral component was cemented in place and was fully seated. Again excess cement was removed. The trial 10 millimeters surface was then inserted in the knee was put in full extension. The patella component was cemented in place. After the cement had sufficiently hardened, the knee was again taken through a range of motion. Again there was good stability in flexion and extension with varus and valgus stress. The trial articular surface was then removed. The final articular surface was placed and was impacted. Care was taken to avoid any soft tissue interposition. Pulsatile lavage was again utilized. The tourniquet was deflated with approximately 70 minutes total tourniquet time. There was minimal drainage therefore a deep drain was not placed. The medial parapatellar arthrotomy was then closed with #2 Ethibond suture. The subcutaneous tissues were reapproximated interrupted 2-0 Vicryl sutures. The skin was reapproximated with 3-0 subarticular strata fix suture. Skin tape and adhesive was applied. A sterile dressing was applied. The patient was then awoken from sedation and transferred to recovery room in good condition. Blood loss was estimated at 50 milliliters. No complications were incurred. Sponge and needle counts were correct at the end the case. Jose MELGAR assisted during the major components this case to include exposure, bone resection, and implantation.
[2018-10-30] MEDS ORDERED: ROPIVACAINE 1,100 MG, SODIUM CHLORIDE 0.9% 500 ML 330 ML MISCELLANE PRN ×2 (12:41)
--- NOTE | 2018-10-30 12:45 | P.ONQ ---
Anesthesiology Proc Note - PNB - Peripheral Nerve Block Performed Right Adductor Canal Infusion Time Out Performed: Yes Procedure Start Time: 10:20 Procedure Stop Time: 10:30 Indication: Acute Post-Operative Pain, Requested by physician Sedation Type: Sedate with meaningful contact maintained Preparation: Sterile Dressing Position: Supine Catheter: Indwelling Needle Types: On-Q Needle Size: 100mm (4") Needle Gauge: 21 Technique: Ultrasound (ropi .5% 20cc) Blood Aspirated: No Pain Paresthesia on Injection Noted: No Resistance on Injection: Normal Events: Uneventful and Well Tolerated
[2018-10-30] MEDS: HYDROmorphone 0.5 MG/0.5 ML SYRINGE IVP PRN ×5 (13:03→22:09)
--- NOTE | 2018-10-30 13:31 | XR ---
EXAMINATION TYPE: XR knee limited RT DATE OF EXAM: 10/30/2018 CLINICAL HISTORY: Right knee pain and arthritis status post total knee replacement. TECHNIQUE: Portable AP and crosstable lateral views of the right knee are obtained immediately posto peratively. COMPARISON: None FINDINGS: Metallic hardware from total right knee arthroplasty is seen and appears satisfactory in a lignment and position. There is evidence of recent surgery with diffuse subcutaneous soft tissue swe lling and subcutaneous edema noted. IMPRESSION: METALLIC HARDWARE FROM TOTAL RIGHT KNEE ARTHROPLASTY IS SATISFACTORY IN ALIGNMENT.
[2018-10-30 16:22] VITALS: BMI 37.8
[2018-10-30] MEDS: ceFAZolin IN SWFI 2 GM/20 ML SYRINGE IVP SCH (16:36)
[2018-10-30] MEDS: SENNOSIDES-DOCUSATE SODIUM 1 EACH TAB PO SCH (21:58)
--- NOTE | 2018-10-30 23:14 | CONS ---
CONSULTATION DATE OF CONSULTATION: 10/30/2018 REASON FOR CONSULTATION: Medical management, requested by Dr. Hastings. CONSULTATION: This is a pleasant 63-year-old patient of Dr. Kapadia. Chronic stable medical conditions include GERD, hypertension, osteoarthritis. Patient has undergone right total knee arthroplasty. Pain is controlled. Did tolerate some supper. No chest pain or shortness of breath. No nausea or vomiting. REVIEW OF SYSTEMS: CONSTITUTIONAL: None. HEENT: None. RESPIRATORY: None. CARDIOVASCULAR: None. GASTROINTESTINAL: Heartburn. GENITOURINARY: None. MUSCULOSKELETAL: Arthritic pain in the joints. DERMATOLOGICAL: None. HEMATOLOGICAL: None. LYMPHATICS: None. PSYCHIATRY: None. NEUROLOGICAL: None. PAST MEDICAL HISTORY: 1. GERD. 2. Hypertension. 3. Osteoarthritis. 4. Migraines. PAST SURGICAL HISTORY: 1. Back surgery. 2. . 3. Tubal ligation. 4. Back surgery x5. 5. Left total knee arthroplasty. SOCIAL HISTORY: Smoked 2 or 3 cigarettes a day for about 30 years, stopped in 1999. Drinks anywhere from 12 to 18 beers a week. . FAMILY HISTORY: Lung cancer. HOME MEDICATIONS: 1. Claritin 10 mg a day. 2. Aspirin 81 mg a day. 3. Tart dominguez extract 1200 mg p.o. daily. 4. Probiotic 1 capsule p.o. daily. 5. Flonase 2 sprays each nostril daily p.r.n. 6. Vitamin B12 1000 mcg p.o. daily. 7. Vitamin C 1000 mg p.o. daily. 8. Prilosec 20 mg p.o. daily. 9. Chlorthalidone 25 mg p.o. daily. 10.Vitamin D3 2000 units p.o. daily. 11.Fioricet 50/325 one tablet p.o. q.4 p.r.n. 12.Biotin 10,000 mcg p.o. daily. 13.Milk thistle 150 mg p.o. daily. 14.Multivitamin Centrum Complete 1 tablet p.o. daily. ALLERGIES: 1. MORPHINE. 2. OXYCONTIN. 3. ULTRAM. 4. PENICILLIN. PHYSICAL EXAMINATION: Temperature 98, pulse 70, respiration 16, blood pressure 120/80, pulse ox 98% on room air. GENERAL APPEARANCE: Well built; BMI 36. Sitting on bed. Comfortable. EYES: Pupils equal. Conjunctivae normal. HEENT: External appearance of nose and ears normal. Oral cavity normal. NECK: JVD not raised. Mass not palpable. RESPIRATORY: Effort normal. LUNGS: Fair air entry. CARDIOVASCULAR: First and second sounds normal. No edema. ABDOMEN: Soft, non-tender. Liver and spleen not palpable. LYMPHATIC: No lymph node palpable in neck or axillae. PSYCHIATRY: Alert and oriented x3. Mood and affect normal. NEUROLOGICAL: Pupils equal. Cranial nerves grossly intact. Power and sensation grossly intact. MUSCULOSKELETAL: Dressing on the right knee. Evidence of OA, especially in the hands. INVESTIGATIONS: No lab work. ASSESSMENT: 1. Right total knee arthroplasty. 2. Primary osteoarthritis. 3. Essential hypertension. 4. Gastroesophageal reflux disease. 5. Obesity; body mass index 36. PLAN: Home medications are resumed. Pain control is in place. DVT prophylaxis per Dr. Hastings. Care was discussed with the patient. Questions were answered. Thank you, Dr. Hastings. MMODL / IJN: [id number] /
[2018-10-31] MEDS: ceFAZolin IN SWFI 2 GM/20 ML SYRINGE IVP SCH (00:17)
[2018-10-31] MEDS: LACTATED RINGERS 1,000 ML IV SCH (02:40)
[2018-10-31] MEDS: HYDROcodone/APAP 7.5-325MG 1 EACH TAB PO PRN ×4 (05:04→22:47)
--- NOTE | 2018-10-31 05:47 | P.PN ---
Progress Note - Text Progress Note Date: 10/31/18 POD 1 From TKR. Doing well, onQ pump in place, site clean and dry. No erythema. Pain controlled. No weakness noted. Normal sensation and strength. Little sore posteriorly but able to ambulate. patient to be d/c home today. Instructions given to them regarding removal.
[2018-10-31 08:35] LABS: Basophils % (A) 0 %; Eosinophils % (A) 0 %; HGB 10.4 gm/dL (11.4-16.0); Lymphocytes # (A) 1.8 k/uL (1.0-4.8); Lymphocytes % (A) 14 %; MCH 30.4 pg (25.0-35.0); MCHC 33.6 g/dL (31.0-37.0); MCV 90.2 fL (80.0-100.0); Mean Platelet Volume 7.2; Monocytes # (A) 0.8 k/uL (0-1.0); Monocytes % (A) 6 %; Neutrophils # (A) 10.4 k/uL (1.3-7.7); Neutrophils % (A) 79 %; Platelet Count 239 k/uL (150-450); RBC 3.43 m/uL (3.80-5.40); RDW 12.5 % (11.5-15.5); WBC 13.2 k/uL (3.8-10.6)
[2018-10-31] MEDS: ASCORBIC ACID 500 MG TAB PO SCH (08:51)
[2018-10-31] MEDS: CHLORTHALIDONE 25 MG TAB PO SCH (08:51)
[2018-10-31] MEDS: MULTIVITAMINS, THERA 1 EACH TAB PO SCH (08:51)
[2018-10-31] MEDS: PANTOPRAZOLE 40 MG TABLET PO SCH (08:51)
[2018-10-31] MEDS: RIVAROXABAN 10 MG TAB PO SCH (08:51)
[2018-10-31] MEDS: CYANOCOBALAMIN 500 MCG TAB PO SCH (08:51)
--- NOTE | 2018-10-31 10:55 | P.PN ---
Subjective Progress Note Date: 10/31/18 Principal diagnosis: Status post right total knee arthroplasty Patient evaluated at bedside, she is resting comfortably. She is not able to do therapy at this point. She has noticed some increase in pain this morning. Denies any chest pain or shortness of breath. Objective - Vital Signs Vital signs: Vital Signs Temp 97.8 F 10/31/18 07:07 Pulse 73 10/31/18 07:07 Resp 16 10/31/18 07:07 BP 116/73 10/31/18 07:07 Pulse Ox 95 10/31/18 07:07 Intake & Output 10/30/18 10/31/18 10/31/18 18:59 06:59 18:59 Intake Total 801 540 Output Total 50 Balance 751 540 Intake: IV 801 Oral 540 Output: Estimated Blood Loss 50 Other: # Voids 1 - Exam Right lower extremity: Incision is clean, dry, and intact. The exofin fusion tape is in good condition. There is minimal soft tissue swelling and ecchymosis surrounding the medial and lateral aspects of the incision. Calf is soft, no tenderness with palpation. Plantar flexion, dorsiflexion, EHL, FHL are intact. Sensory exam to light touch throughout the extremity is intact, dorsal pedis pulses 2+. - Labs CBC & Chem 7: 10/31/18 07:32 Labs: Abnormal Lab Results - Last 24 Hours (Table) 10/31/18 Range/Units 07:32 WBC 13.2 H (3.8-10.6) k/uL RBC 3.43 L (3.80-5.40) m/uL Hgb 10.4 L (11.4-16.0) gm/dL Hct 31.0 L (34.0-46.0) % Neutrophils # 10.4 H (1.3-7.7) k/uL Assessment and Plan Plan: Assessment: Postop day #1 status post right total knee arthroplasty Plan: Pain control, continue use of oral Dwarf as needed. IV pain medication as needed, okay given 1 mg Dilaudid DVT and GI prophylaxis, continue current medication Wound care instructions were discussed Encourage incentive spirometer Medical recommendations With patients increase in pain and continuous use of IV pain medication, we'll keep him 1 additional night for pain control. Continue her physical therapy. Plan for discharge home tomorrow Time with Patient: Less than 30
[2018-10-31] MEDS: SENNOSIDES-DOCUSATE SODIUM 1 EACH TAB PO SCH (20:54)
[2018-11-01] MEDS: HYDROcodone/APAP 7.5-325MG 1 EACH TAB PO PRN ×3 (04:06→13:45)
[2018-11-01 04:08] VITALS: RESP 17
[2018-11-01] MEDS: LACTATED RINGERS 1,000 ML IV SCH (05:28)
[2018-11-01 07:51] VITALS: BP 130/77; PULSE 82; TEMP 97.7
[2018-11-01] MEDS: CYANOCOBALAMIN 500 MCG TAB PO SCH (08:53)
[2018-11-01] MEDS: RIVAROXABAN 10 MG TAB PO SCH (08:53)
[2018-11-01] MEDS: ASCORBIC ACID 500 MG TAB PO SCH (08:53)
[2018-11-01] MEDS: CHLORTHALIDONE 25 MG TAB PO SCH (08:53)
[2018-11-01] MEDS: PANTOPRAZOLE 40 MG TABLET PO SCH (08:53)
[2018-11-01] MEDS: MULTIVITAMINS, THERA 1 EACH TAB PO SCH (08:53)
--- NOTE | 2018-11-01 09:38 | PN ---
PROGRESS NOTE DATE OF SERVICE: 10/31/2018 PRESENTING COMPLAINT: Right knee surgery. INTERVAL HISTORY: Patient is status post right knee arthroplasty, doing better. Pain is better controlled to work with therapy. Been out of bed. No nausea, vomiting, did tolerate a diet. Overall feeling better. REVIEW OF SYSTEMS: Done for constitutional, cardiovascular, GI, pulmonary; relevant findings as above. CURRENT MEDICATIONS: Reviewed. PHYSICAL EXAMINATION: Temperature 97.9, pulse 71, respiration 16, blood pressure 114/74, pulse ox 93%. GENERAL APPEARANCE: Sitting up, comfortable. EYES: Pupils equal, conjunctivae normal. NECK: JVD not raised. Mass not palpable. RESPIRATORY: Effort normal. LUNGS: Clear. CARDIOVASCULAR: First and second sounds normal, no edema. ABDOMEN: Soft, nontender. Liver and spleen not palpable. PSYCHIATRY: Alert and oriented x3, mood and affect normal. MUSCULOSKELETAL: Dressing of the right knee. INVESTIGATIONS: White count 13.2, hemoglobin 10.4. ASSESSMENT: 1. Right total knee arthroplasty. 2. Primary osteoarthritis. 3. Essential hypertension. 4. Gastroesophageal reflux disease. 5. Obesity, body mass index of 36. 6. Possibly acute blood loss anemia as expected with surgery. PLAN: Continue medication and treatment plan. Care was discussed with the patient. Overall doing well. MMODL / IJN: [id number] /
--- NOTE | 2018-11-01 11:42 | P.PN ---
Subjective Progress Note Date: 11/01/18 Principal diagnosis: Status post right total knee arthroplasty Patient evaluated at bedside, she is resting comfortably. Patient doing well at this time. Denies any chest pain or shortness of breath. Objective - Vital Signs Vital signs: Vital Signs Temp 97.7 F 11/01/18 07:35 Pulse 82 11/01/18 07:35 Resp 17 11/01/18 01:35 BP 130/77 11/01/18 07:35 Pulse Ox 94 L 11/01/18 07:35 Intake & Output 10/31/18 11/01/18 11/01/18 18:59 06:59 18:59 Intake Total 1080 Balance 1080 Intake: Oral 1080 Other: Voiding Method Toilet # Voids 2 1 - Exam Right lower extremity: Incision is clean, dry, and intact. The exofin fusion tape is in good condition. There is minimal soft tissue swelling and ecchymosis surrounding the medial and lateral aspects of the incision. Calf is soft, no tenderness with palpation. Plantar flexion, dorsiflexion, EHL, FHL are intact. Sensory exam to light touch throughout the extremity is intact, dorsal pedis pulses 2+. - Labs CBC & Chem 7: 10/31/18 07:32 Assessment and Plan Plan: Assessment: Postop day #2 status post right total knee arthroplasty Plan: Pain control, plan for discharge on oral medication DVT and GI prophylaxis, Xarelto 10 mg daily Wound care instructions were discussed Encourage incentive spirometer Medical recommendations Stable for discharge home today Time with Patient: Less than 30
--- NOTE | 2018-11-01 11:45 | P.DS ---
Providers Date of admission: 10/30/2018 Expected date of discharge: 11/01/18 Attending physician: David Hastings Consults: 10/30/18 12:14 Consult Physician Routine Consulting Provider: Idris Kapadia Consult Reason/Comments: Medical Management Do you want consulting provider notified?: Yes Primary care physician: [facility] Course: Date of admission: 10/30/2018 Date of discharge: 11/01/2018 Admission diagnosis: Status post right total knee arthroplasty Discharge diagnosis: Same Attending physician: Dr. Hastings Surgical procedures: Right total knee arthroplasty Brief history: Patient is a 63-year-old female with a history of with progressive primary right knee osteoarthritis. At this point patient has failed conservative treatment measures and has opted to proceed with a elective right total knee arthroplasty. Hospital course: Details of patient's surgery can be found in operative report. Patient tolerated the procedure well and was subsequently transported to orthopedic floor. Patient's orthopeidc and medical care was provided daily. Patient had daily laboratory tests performed for evaluation of overall blood counts. Patient had daily physical therapy to include strengthening range of motion as well as education with walker ambulation. Patient had daily CPM usage as part of their physical therapy program. Patient was treated with Xarelto for their postoperative DVT prophylaxis during their inpatient stay. Patient was noted to have a relatively uneventful postoperative course. Patient reported satisfactory pain control with oral pain medications by postoperative day 0. Patient showed satisfactory progress with physical therapy. Patient moved steadily through the program and had no difficulty meeting the goals by postoperative day 2. Given patient's otherwise satisfactory course and having met physical therapy goals, plan is to discharge patient home on postoperative day 2. Discharge condition/disposition: Patient will be discharged home in stable condition. Discharge medications: Instructions are given on resumption of patient's normal daily medications per primary care recommendation, in addition patient will be prescribed [place] 7.5 mg/325 mg, Xarelto 10 mg. Discharge instructions: 1. Wound care and infection precautions, keep incision dry and covered while showering, no lotions, creams, moisturizers. No soaking, tubs, pools, hottubs. Do not scrub over the incision. 2. Weight-bear as tolerated with walker / cane until follow-up. 3. Ice and elevate when necessary. Do not exceed 20 minutes per hour with ice pack. 4. Utilize compression sleeve until seen at first follow up appointment. 5. Visiting nursing care. 6. Home physical therapy including home CPM. 7. Pain meds and anticoagulants per prescription. 8. Pain medication has potential to cause constipation. Increase oral fluid and fiber intake. Contact primary care provider if you have not had a bowel movement within 48 hours after discharge 9. No anti-inflammatory medication until discussed at first post operative visit, this including Motrin, Aleve, Mobic, Diclofenac 10. Follow up in office at 2 weeks postop with Jose Lozada PA-C 11. Follow up with your primary care doctor 7-10 days after discharge. 12. Contact [facility] with any questions, . Procedures: Right total knee arthroplasty Patient Condition at Discharge: Good Plan - Discharge Summary Discharge Rx Participant: Yes New Discharge Prescriptions: New HYDROcodone/APAP 7.5-325MG [[place] 7.5] 1 - 2 each PO Q6HR PRN #56 tab PRN Reason: Pain Rivaroxaban [Xarelto] 10 mg PO DAILY #12 tab No Action Acetaminophen Tab [Tylenol Tab] 1,000 mg PO BID PRN PRN Reason: Pain Alendronate Sodium 70 mg PO FR Multivitamin/Iron/Folic Acid [Centrum Complete Multivit Tab] 1 tab PO DAILY Omeprazole [PriLOSEC] 20 mg PO DAILY Cyanocobalamin [Vitamin B-12] 1,000 mcg PO DAILY Aspirin 81 mg PO DAILY Ascorbic Acid [Vitamin C] 1,000 mg PO DAILY Fluticasone Nasal [place] [Flonase Nasal [place]] 2 spr EA NOSTRIL DAILY PRN MDD ` PRN Reason: Allergy Symptoms Loratadine [Claritin] 10 mg PO DAILY Chlorthalidone 25 mg PO DAILY Ginkgo Biloba. 120 mg PO DAILY Tart Singh Extract 1,200 mg PO DAILY Biotin 10,000 mcg PO DAILY Butalb/APAP/Caff 50-325-40Mg [Fioricet 50-325-40] 1 tab PO Q4H PRN PRN Reason: Migraine Headache Cholecalciferol (Vitamin D3) [Vitamin D3] 2,000 unit PO DAILY Ibuprofen 800 mg PO TID PRN PRN Reason: Pain L.acidoph,Paracasei, B.lactis [Probiotic] 1 cap PO DAILY Milk Thistle 150 mg PO DAILY Discharge Medication List Acetaminophen Tab [Tylenol Tab] 1,000 mg PO BID PRN 12/17/14 [History] Alendronate Sodium 70 mg PO FR 12/17/14 [History] Ascorbic Acid [Vitamin C] 1,000 mg PO DAILY 12/17/14 [History] Aspirin 81 mg PO DAILY 12/17/14 [History] Cyanocobalamin [Vitamin B-12] 1,000 mcg PO DAILY 12/17/14 [History] Multivitamin/Iron/Folic Acid [Centrum Complete Multivit Tab] 1 tab PO DAILY 12/17/14 [History] Omeprazole [PriLOSEC] 20 mg PO DAILY 12/17/14 [History] Chlorthalidone 25 mg PO DAILY 12/11/16 [History] Fluticasone Nasal [place] [Flonase Nasal [place]] 2 spr EA NOSTRIL DAILY PRN MDD ` 12/11/16 [History] Loratadine [Claritin] 10 mg PO DAILY 12/11/16 [History] Biotin 10,000 mcg PO DAILY 10/23/18 [History] Butalb/APAP/Caff 50-325-40Mg [Fioricet 50-325-40] 1 tab PO Q4H PRN 10/23/18 [History] Cholecalciferol (Vitamin D3) [Vitamin D3] 2,000 unit PO DAILY 10/23/18 [History] Ginkgo Biloba. 120 mg PO DAILY 10/23/18 [History] Ibuprofen 800 mg PO TID PRN 10/23/18 [History] L.acidoph,Paracasei, B.lactis [Probiotic] 1 cap PO DAILY 10/23/18 [History] Milk Thistle 150 mg PO DAILY 10/23/18 [History] Tart Singh Extract 1,200 mg PO DAILY 10/23/18 [History] HYDROcodone/APAP 7.5-325MG [[place] 7.5] 1 - 2 each PO Q6HR PRN #56 tab 11/01/18 [Rx] Rivaroxaban [Xarelto] 10 mg PO DAILY #12 tab 11/01/18 [Rx] Follow up Appointment(s)/Referral(s): [facility], [NON-STAFF] - Armando Lozada PAC [PHYSICIAN CULINARY MANAGER] - 2 Weeks Activity/Diet/Wound Care/Special Instructions: Orthopedic Discharge Instructions: 1. Wound care and infection precautions, keep incision dry and covered while showering, no lotions, creams, moisturizers. No soaking, pools, hot tubs. Do not scrub over incision. 2. Weight-bear as tolerated with walker / cane until follow-up. 3. Ice and elevate when necessary. Do not exceed 20 minutes per hour with ice pack. 4. Utilize compression sleeve until seen at first follow up appointment. 5. Pain meds and anticoagulants per prescription. 6. Pain medication has potential to cause constipation. Increase oral fluid and fiber intake. Contact primary care provider if you have not had a bowel movement within 48 hours after discharge. 7. No anti-inflammatory medication until discussed at first post operative visit, this including Motrin, Aleve, Mobic, Diclofenac. 8. Follow up in office at 2 weeks postop with Jose Lozada PA-C 9. Follow up with your primary care doctor 7-10 days after discharge. 10. Contact [facility] with any questions, . Discharge Disposition: HOME WITH HOME HEALTH SERVICES
--- NOTE | 2018-11-02 07:09 | PN ---
PROGRESS NOTE DATE OF SERVICE: 11/01/2018 PRESENTING COMPLAINT: Right knee surgery. INTERVAL HISTORY: This patient was seen by me yesterday on 11/01/2018. Continues to do well. Pain is better. No new issues. Has been ambulating with physical therapy, doing rather well. REVIEW OF SYSTEMS: Done for constitutional, cardiovascular, GI, pulmonary, musculoskeletal; relevant findings as above. CURRENT MEDICATIONS: Reviewed. PHYSICAL EXAMINATION: Temperature 97.7, pulse 82, respiration 16, blood pressure 130/77, pulse ox 94% on room air. GENERAL APPEARANCE: Sitting up, comfortable. EYES: Pupils equal, conjunctivae normal. NECK: JVD not raised. Mass not palpable. RESPIRATORY: Effort normal. LUNGS: Clear. CARDIOVASCULAR: First and second sounds are normal, no edema. ABDOMEN: Soft, nontender. Liver and spleen not palpable. PSYCHIATRY: Alert and oriented x3. Mood and affect normal. INVESTIGATIONS: No blood work from today. ASSESSMENT: 1. Right total knee arthroplasty. 2. Primary osteoarthritis. 3. Essential hypertension. 4. Gastroesophageal reflux disease. 5. Obesity, body mass index 36. 6. Acute blood loss anemia expected from surgery. PLAN: Patient is stable. Continue medication and treatment plan. MMODL / IJN: [id number] /
== END 2018-11-01 15:12 | disposition home health service (06) | DRG 470 ==
LOC: OR 09:05 → 4SSUR 14:00 → OR 10-31 10:55
PROVIDERS: ADMIT Orthopaedic Surgery; ATTEND Orthopaedic Surgery
PROC: 0SRC0J9 Replacement of Right Knee Joint with Synthetic Substitute, Cemented, Open Approach (ICD-10-PCS; principal; 2018-10-30 10:45)
DX: M17.11 Unilateral primary osteoarthritis, right knee (principal); D62 Acute posthemorrhagic anemia; M81.0 Age-related osteoporosis without current pathological fracture; I10 Essential (primary) hypertension; G89.29 Other chronic pain; M51.36 Other intervertebral disc degeneration, lumbar region; G43.909 Migraine, unspecified, not intractable, without status migrainosus; K21.9 Gastro-esophageal reflux disease without esophagitis; E66.9 Obesity, unspecified; Z68.36 Body mass index [BMI] 36.0-36.9, adult; Z79.82 Long term (current) use of aspirin; Z79.83 Long term (current) use of bisphosphonates; Z79.899 Other long term (current) drug therapy; Z87.891 Personal history of nicotine dependence; Z96.652 Presence of left artificial knee joint; Z98.890 Other specified postprocedural states; Z88.5 Allergy status to narcotic agent; Z80.1 Family history of malignant neoplasm of trachea, bronchus and lung
CPT/HCPCS: 85025; 88300

== ENCOUNTER → 2018-12-14 | Outpatient (CLI) | payer MEDICARE ==
--- NOTE | 2018-12-14 10:11 | CT ---
EXAMINATION TYPE: CT ChestAbdPelvis w con DATE OF EXAM: 12/14/2018 COMPARISON: None HISTORY: Recent diagnosis of vulvuar cancer CT DLP: [id number] mGycm CONTRAST: CT scan of the chest, abdomen and pelvis is performed with Oral Contrast and with IV Contrast, patien t injected with 100 mL of Isovue 300. CT Chest: LUNGS: The lungs are clear and free of infiltrate or atelectasis. No pulmonary nodule or mass is det ected. No pleural effusion or CT evidence of interstitial lung disease. MEDIASTINUM: Thoracic aorta is of normal caliber. The heart is not enlarged. No evidence for media stinal mass or adenopathy. HILAR STRUCTURES: No evidence for mass. No hilar adenopathy is appreciated. OTHER: No significant abnormality. CONTRAST CT ABDOMEN AND PELVIS FINDINGS: LIVER/GB: No calcified gallstones. No space occupying hepatic lesion. Biliary tree is of normal ca liber. PANCREAS: No inflammation. No distinct mass. SPLEEN: No splenic enlargement. No lesion seen. ADRENALS: No nodule. No thickening. KIDNEYS/BLADDER: No hydronephrosis. No nephrolithiasis. No disctinct renal mass. BOWEL: Normal appendix. Normal bowel caliber. No inflammation. GENITAL ORGANS: No gross abnormality. LYMPH NODES: No greater than 1cm abdominal or pelvic lymph nodes are appreciated. AORTA: No significant abnormality. OSSEOUS STRUCTURES: Moderate to severe multilevel degenerative disc disease and postoperative change lumbar spine. Scoliotic curvature convex to the left. Delano rods are noted of the thoracic spine . OTHER: No significant additional abnormality is seen. IMPRESSION: 1. No evidence for metastatic disease at this time.
== END | disposition home or self-care (01) ==
LOC: RADCTMAIN 08:00
PROVIDERS: ATTEND Obstetrics & Gynecology
DX: C51.9 Malignant neoplasm of vulva, unspecified (principal)
CPT/HCPCS: 71260; 74177; Q9967

== ENCOUNTER → 2020-04-06 | Outpatient (CLI) | payer MEDICARE ==
--- NOTE | 2020-04-08 10:33 | MM ---
Reason for exam: screening (asymptomatic). Last mammogram was performed 1 year and 5 months ago. History: Patient is postmenopausal and has history of other cancer at age 63. Took hormonal contraceptives for 30 years. Physical Findings: A clinical breast exam by your physician is recommended on an annual basis and results should be correlated with mammographic findings. MG 3D Screening Mammo W/Cad Bilateral CC and MLO view(s) were taken. Prior study comparison: October 29, 2018, bilateral MG 3d screening mammo w/cad. April 15, 2016, bilateral MG 3d screening mammo w/cad. There are scattered fibroglandular densities. There is no discrete abnormality. Asymmetric breast tissue right breast, stable. ASSESSMENT: Negative, BI-RAD 1 RECOMMENDATION: Routine screening mammogram of both breasts in 1 year.
== END | disposition home or self-care (01) ==
LOC: RADMAMWWP 12:51
PROVIDERS: ATTEND Obstetrics & Gynecology Gynecology
DX: Z12.31 Encounter for screening mammogram for malignant neoplasm of breast (principal); C51.1 Malignant neoplasm of labium minus
CPT/HCPCS: 77063; 77067

== ENCOUNTER 2020-11-19 17:41 | Emergency (ER) | payer MEDICARE ==
[2020-11-19 17:47] VITALS: TEMP 97.8
[2020-11-19] MEDS ORDERED: LIDOCAINE 1% INJ 10MG/ML (20 ML MDV) SQ ONE (18:02)
--- NOTE | 2020-11-19 18:27 | ED ---
Wound/Laceration HPI - General Chief Complaint: Wound/Laceration Stated Complaint: cut finger off Time Seen by Provider: 11/19/20 17:55 Source: patient Mode of arrival: wheelchair Limitations: no limitations - History of Present Illness Initial Comments: 65 year old female presents to emergency with a chief complaint of an injury to the right finger. Patient reports she caught her right fourth digit on a lawn chair and caused an injury. States the distal end of the right fourth digit appeared to be "hanging by a thread" before she was able to put it back and on ice. Reports some pain at the site. Reports some bleeding which is since resolved. Denies any paresthesias at this time. - Related Data Home Medications Medication Instructions Recorded Confirmed Acetaminophen Tab [Tylenol Tab] 1,000 mg PO BID PRN 12/17/14 10/31/18 Alendronate Sodium 70 mg PO FR 12/17/14 10/31/18 Ascorbic Acid [Vitamin C] 1,000 mg PO DAILY 12/17/14 10/31/18 Aspirin 81 mg PO DAILY 12/17/14 10/31/18 Cyanocobalamin [Vitamin B-12] 1,000 mcg PO DAILY 12/17/14 10/31/18 Multivitamin/Iron/Folic Acid 1 tab PO DAILY 12/17/14 10/31/18 [Centrum Complete Multivit Tab] Omeprazole [PriLOSEC] 20 mg PO DAILY 12/17/14 10/31/18 Chlorthalidone 25 mg PO DAILY 12/11/16 10/31/18 Fluticasone Nasal [place] [Flonase 2 spr EA NOSTRIL DAILY PRN MDD ` 12/11/16 10/31/18 Nasal [place]] Loratadine [Claritin] 10 mg PO DAILY 12/11/16 10/31/18 Biotin 10,000 mcg PO DAILY 10/23/18 10/31/18 Butalb/APAP/Caff 50-325-40Mg 1 tab PO Q4H PRN 10/23/18 10/31/18 [Fioricet 50-325-40] Cholecalciferol (Vitamin D3) 2,000 unit PO DAILY 10/23/18 10/31/18 [Vitamin D3] Ginkgo Biloba. 120 mg PO DAILY 10/23/18 10/31/18 Ibuprofen 800 mg PO TID PRN 10/23/18 10/31/18 L.acidoph,Paracasei, B.lactis 1 cap PO DAILY 10/23/18 10/31/18 [Probiotic] Milk Thistle 150 mg PO DAILY 10/23/18 10/31/18 Tart Singh Extract 1,200 mg PO DAILY 10/23/18 10/31/18 Previous Rx's Medication Instructions Recorded HYDROcodone/APAP 7.5-325MG [[place] 1 - 2 each PO Q6HR PRN #56 tab 11/01/18 7.5] Rivaroxaban [Xarelto] 10 mg PO DAILY #12 tab 11/01/18 Allergies Allergy/AdvReac Type Severity Reaction Status Date / Time morphine Allergy Itching Verified 11/19/20 17:47 oxycodone HCl Allergy Hallucinati Verified 11/19/20 17:47 [From OxyContin] ons tramadol Allergy Rash/Hives Verified 11/19/20 17:47 Penicillins AdvReac SEVERE Verified 11/19/20 17:47 YEAST INFECTION Review of Systems ROS Statement: Those systems with pertinent positive or pertinent negative responses have been documented in the HPI. ROS Other: All systems not noted in ROS Statement are negative. Past Medical History Past Medical History: GERD/Reflux, Hypertension, Neurologic Disorder, Osteoarthritis (OA) Additional Past Medical History / Comment(s): MIGRAINE HEADACHE. Fx LT ARM- 12/11/16 History of Any Multi-Drug Resistant Organisms: None Reported Past Surgical History: Back Surgery, Section, Tubal Ligation Additional Past Surgical History / Comment(s): back surgery X5. COLONOSCOPY Past Anesthesia/Blood Transfusion Reactions: No Reported Reaction Past Psychological History: No Psychological Hx Reported Smoking Status: Never smoker Past Alcohol Use History: Occasional Past Drug Use History: None Reported - Past Family History Mother Family Medical History: Cancer Additional Family Medical History / Comment(s): LUNG CANCER General Exam Limitations: no limitations General appearance: alert, in no apparent distress, obese Head exam: Present: atraumatic, normocephalic, normal inspection Eye exam: Present: normal appearance, PERRL, EOMI Pupils: Present: normal accommodation ENT exam: Present: normal exam, normal oropharynx, mucous membranes moist Neck exam: Present: normal inspection, full ROM. Absent: tenderness, lymphadenopathy Respiratory exam: Present: normal lung sounds bilaterally. Absent: respiratory distress Cardiovascular Exam: Present: regular rate, normal rhythm, normal heart sounds. Absent: systolic murmur Extremities exam: Present: normal inspection (Crush injury to the distal right fourth digit), full ROM, tenderness (Tenderness at the lacerated site), normal capillary refill. Absent: pedal edema, joint swelling, calf tenderness Back exam: Present: normal inspection, full ROM. Absent: tenderness, CVA tenderness (R), CVA tenderness (L) Neurological exam: Present: alert, oriented X3 Psychiatric exam: Present: normal affect, normal mood Skin exam: Present: warm, dry, intact, normal color Course Vital Signs 11/19/20 17:44 Temperature 97.8 F Pulse Rate 93 Respiratory 20 Rate Blood Pressure 152/73 O2 Sat by Pulse 96 Oximetry Procedures - Laceration Laceration #1 Consent Obtained: verbal consent Indication: laceration Site: other (Right fourth digit) Size (cm): 4 Description: irregular, clean Depth: simple, single layer Sedation/Analgesia: none Anesthetic Used: lidocaine 1% Anesthesia Technique: nerve block (Digital) Amount (mls): 10 Pre-repair: irrigated extensively, deep structures intact Type of Sutures: nylon Size of Sutures: 4-0 Number of Sutures: 15 Technique: simple, interrupted Complications: bleeding Patient Tolerated Procedure: well, no complications Medical Decision Making - Medical Decision Making 65-year-old female presents to emergency Department with the chief complaint of finger injury. On physical examination, crush injury to the distal end of the right fourth digit. I did remove the ring with trauma rylee. X-ray revealed a comminuted distal phalanx tuft fracture. I performed a digital block of the finger and apply 15 sutures in order to approximate the laceration end of the finger back together. I also repaired the nail bed injury. I was able to suture down the nail to the nail bed. This was an open fracture and was thoroughly irrigated with Betadine and saline. Patient was given 1 g of Ancef. Tylenol 3 starter pack for pain. Also a finger splint was applied at the end. Patient was advised to follow-up with wound care specialist. Return parameters were thoroughly discussed with patient was understanding and agreeable. Case discussed with Dr. Preciado. Disposition Clinical Impression: Laceration, Open fracture of tuft of distal phalanx of finger Disposition: HOME SELF-CARE Condition: Stable Instructions (If sedation given, give patient instructions): Finger Fracture (ED), Laceration (DC), Care For Your Stitches (DC) Additional Instructions: Follow-up with wound care specialist. Take prescribed medication as needed. Return to emergency department if symptoms worsen. Is patient prescribed a controlled substance at d/c from ED?: No Referrals: Idris Kapadia DO [Primary Care Provider] - 1-2 days Tam Varela DO [Doctor of Osteopathic Medicine] - 1-2 days Time of Disposition: 19:29
--- NOTE | 2020-11-19 18:45 | XR ---
PROCEDURE: XR finger RT - 3V DATE AND TIME: 11/19/2020 6:29 PM CLINICAL INDICATION: Pain after crush injury to the distal phalanx TECHNIQUE: Department protocol COMPARISON: None FINDINGS: The distal tuft of the distal phalanx of the fourth finger demonstrates a comminuted fractu re involving the nailbed, with prominent soft tissue swelling. No soft tissue emphysema or radiopaque foreign bodies. The DIP is congruent. There are no other fractures. IMPRESSION: Distal tuft comminuted fracture involving the nailbed.
[2020-11-19] MEDS ORDERED: BACITRACIN OINT 1 EACH PACKET TOPICAL ONE (19:15)
[2020-11-19] MEDS ORDERED: ACET/COD 300 MG/30 MG STARTER PACK 6 TAB BTL PO STA (19:23)
[2020-11-19 20:05] VITALS: BP 178/82; PULSE 90; RESP 18
== END 2020-11-19 20:05 | disposition home or self-care (01) ==
LOC: EC 17:41
DX: W23.0XXA Caught, crushed, jammed, or pinched between moving objects, initial encounter (principal); I10 Essential (primary) hypertension; M19.90 Unspecified osteoarthritis, unspecified site; K21.9 Gastro-esophageal reflux disease without esophagitis; Z98.51 Tubal ligation status
CPT/HCPCS: 73140; 99283; 12002; 96372; J0690; J2001

== ENCOUNTER → 2021-05-14 | Outpatient (CLI) | payer MEDICARE ==
--- NOTE | 2021-05-17 12:31 | MM ---
Reason for exam: screening (asymptomatic). Last mammogram was performed 1 year and 1 month ago. History: Patient is postmenopausal and has history of other cancer at age 63. Took hormonal contraceptives for 30 years. Physical Findings: A clinical breast exam by your physician is recommended on an annual basis and results should be correlated with mammographic findings. MG 3D Screening Mammo W/Cad Bilateral CC and MLO view(s) were taken. Prior study comparison: April 06, 2020, bilateral MG 3d screening mammo w/cad. October 29, 2018, bilateral MG 3d screening mammo w/cad. There are scattered fibroglandular densities. There are benign appearing round calcifications in the left breast. There is no discrete abnormality. ASSESSMENT: Benign, BI-RAD 2 RECOMMENDATION: Routine screening mammogram of both breasts in 1 year.
== END | disposition home or self-care (01) ==
LOC: RADMAMWWP 10:45
PROVIDERS: ATTEND Obstetrics & Gynecology Gynecology
DX: Z12.31 Encounter for screening mammogram for malignant neoplasm of breast (principal); Z78.0 Asymptomatic menopausal state
CPT/HCPCS: 77063; 77067

== ENCOUNTER → 2022-05-16 | Outpatient (CLI) | payer MEDICARE ==
--- NOTE | 2022-05-17 10:34 | MM ---
Reason for Exam: Screening (asymptomatic). Last screening mammogram was performed 12 month(s) ago. Patient History: Menarche at age 11. First Full-Term at age 25. Postmenopausal. Other cancer, age 63. Patient used Hormonal Contraceptives for 30 years. Risk Values: Carole 5 year model risk: 1.9%. NCI Lifetime model risk: 6.4%. Prior Study Comparison: 10/29/2018 Bilateral Screening Mammogram, [facility]. 04/06/2020 Bilateral Screening Mammogram, [facility]. 05/14/2021 Bilateral Screening Mammogram, [facility]. Tissue Density: There are scattered fibroglandular densities. Findings: Analyzed By CAD. There is no suspicious group of microcalcifications or new suspicious mass in either breast. Benign-appearing round calcifications within left breast. No significant change from prior exams. Overall Assessment: Benign, BI-RAD 2 Management: Screening Mammogram of both breasts in 1 year. A clinical breast exam by your physician is recommended on an annual basis and results should be correlated with mammographic findings. Electronically signed and approved by: Mario Alberto Shipman D.O.
== END | disposition home or self-care (01) ==
LOC: RADMAMWWP 09:59
PROVIDERS: ATTEND Obstetrics & Gynecology Gynecology
DX: Z12.31 Encounter for screening mammogram for malignant neoplasm of breast (principal); Z78.0 Asymptomatic menopausal state
CPT/HCPCS: 77063; 77067

== ENCOUNTER 2022-12-30 09:06 | Day surgery (SDC) | payer MEDICARE ==
--- NOTE | 2022-12-29 08:32 | P.HPOR ---
History of Present Illness H&P Date: 12/29/22 Chief Complaint: Left thigh pain The patient is a 59-year-old female presents after undergoing retrograde intramedullary nailing of a left femoral shaft fracture in June 2022 in [place] with persistent thigh pain. She's been intermittently using a cane. She has pain every time she attempts to walk. Review of Systems As per HPI Past Medical History Past Medical History: GERD/Reflux, Hypertension, Osteoarthritis (OA) Additional Past Medical History / Comment(s): Fx LT ARM-12/11/16 History of Any Multi-Drug Resistant Organisms: None Reported Past Surgical History: Back Surgery, Section, Orthopedic Surgery, Tubal Ligation Additional Past Surgical History / Comment(s): back surgery X5 lft femur fx repair. COLONOSCOPY. Left total knee arthroplasty. Right knee arthroscopy Past Anesthesia/Blood Transfusion Reactions: No Reported Reaction Smoking Status: Former smoker - Past Family History Mother Family Medical History: Cancer Additional Family Medical History / Comment(s): LUNG CANCER Medications and Allergies Home Medications Medication Instructions Recorded Confirmed Type Acetaminophen Tab [Tylenol Tab] 1,000 mg PO BID PRN 12/17/14 12/27/22 History Alendronate Sodium 70 mg PO FR 12/17/14 12/27/22 History Ascorbic Acid [Vitamin C] 1,000 mg PO DAILY 12/17/14 12/27/22 History Aspirin 81 mg PO DAILY 12/17/14 12/27/22 History Cyanocobalamin [Vitamin B-12] 1,000 mcg PO DAILY 12/17/14 12/27/22 History Multivitamin/Iron/Folic Acid 1 tab PO DAILY 12/17/14 12/27/22 History [Centrum Complete Multivit Tab] Omeprazole [PriLOSEC] 20 mg PO DAILY 12/17/14 12/27/22 History Chlorthalidone 25 mg PO DAILY 12/11/16 12/27/22 History Fluticasone Nasal [place] [Flonase 2 spr EA NOSTRIL DAILY PRN MDD ` 12/11/16 12/27/22 History Nasal [place]] Loratadine [Claritin] 10 mg PO DAILY 12/11/16 12/27/22 History Biotin 10,000 mcg PO DAILY 10/23/18 12/27/22 History Cholecalciferol (Vitamin D3) 2,000 unit PO DAILY 10/23/18 12/27/22 History [Vitamin D3] Ginkgo Biloba. 120 mg PO DAILY 10/23/18 12/27/22 History L.acidoph,Paracasei, B.lactis 1 cap PO DAILY 10/23/18 12/27/22 History [Probiotic] Milk Thistle 150 mg PO DAILY 10/23/18 12/27/22 History Tart Singh Extract 1,200 mg PO DAILY 10/23/18 12/27/22 History Losartan Potassium 50 mg PO DAILY 12/27/22 12/27/22 History Allergies Allergy/AdvReac Type Severity Reaction Status Date / Time morphine Allergy Itching Verified 12/27/22 13:49 oxycodone HCl Allergy Hallucinati Verified 12/27/22 13:49 [From OxyContin] ons tramadol Allergy Rash/Hives Verified 12/27/22 13:49 Penicillins AdvReac SEVERE Verified 12/27/22 13:49 YEAST INFECTION Physical Examination - Hip left Gait: antalgic Tenderness with palpation: other (Mid thigh) ROM: flexion: 90 degrees ROM: internal rotation: 20 degrees ROM: external rotation: 60 degrees Crepitus with motion: No Strength: flexion: 4/5 Strength: abduction: 5/5 Results The patient is a well-developed well-nourished female approximately 5 foot 7, 231 pounds endomorphic habitus. HEENT exam is nonfocal, neck is supple. She has painless passive motion of the left hip. She is tender but the left mid femur/thigh. She is nontender about the left knee. Left knee is stable to varus/ valgus stress. Her distal neurovascular appears intact in the left lower extremity. - Diagnostic results Hip x-ray: image reviewed (2 views of the left femur obtaining the office show a midshaft femur fracture with gapping at the fracture site with incomplete healing. A retrograde statically locked intramedullary nail is in place. Previous total knee arthroplasty is also noted.) Assessment and Plan Assessment: Status post intramedullary nailing left femoral shaft fracture with delayed union Plan: I talked to the patient length regarding her condition at this point recommend proceeding with dynamization of her femoral nail. We'll plan her proceed with removal of the proximal locking screws from the left femoral nail and potentially the distal locking screws if needed. We will likely perform that as an outpatient procedure. Risks and benefits were discussed in layman's terms.
[~2022-12-30 09:06] MED LIST changes: -ACETAMINOPHEN TAB 500 MG TAB PO ONE; -DEXAMETHASONE SOD PHOSPHATE 10 MG/ML 1 ML VIAL IV ONE; +DEXAMETHASONE SOD PHOSPHATE 4 MG/ML 1 ML VIAL IV ONE; +HYDROmorphone 0.5 MG/0.5 ML SYRINGE IVP PRN; +LACTATED RINGERS 1,000 ML IV SCH; +LIDOCAINE 1% (10MG/ML) FOR IV START INTRADERMA PRN; -LIDOCAINE 1% 20 ML VIAL (10MG/ML) FOR IV START INTRADERMA PRN; -MELOXICAM 7.5 MG TAB PO ONE; -SCOPOLAMINE 1.5MG/72HR PATCH TRANSDERM ONE; -TRANEXAMIC ACID 1,000 MG in SODIUM CHLORIDE 0.9% 100 ML IVPB ONE; -ceFAZolin IN SWFI 2 GM/20 ML SYRINGE IVP ONE
[2022-12-30] MEDS ORDERED: SUCCINYLCHOLINE CHLORIDE 200 MG/10 ML VIAL IV ONE (10:48)
[2022-12-30] MEDS ORDERED: GLYCOPYRROLATE 0.2 MG/ML 2 ML VIAL ONE (10:48)
[2022-12-30] MEDS ORDERED: ROCURONIUM 10 MG/ML (5 ML VIAL) IV ONE (10:48)
[2022-12-30] MEDS ORDERED: LIDOCAINE 2% INJ 20 MG/ML (2 ML VIAL) ONE (10:48)
[2022-12-30] MEDS ORDERED: NEOSTIGMINE 1 MG/ML 10 ML VIAL ONE (10:48)
[2022-12-30] MEDS ORDERED: MIDAZOLAM 2 MG/2 ML VIAL ONE (10:48)
[2022-12-30] MEDS ORDERED: PROPOFOL 10 MG/ML 20 ML VIAL IV ONE (10:48)
[2022-12-30] MEDS ORDERED: fentaNYL (PF) 50 MCG/ML 2 ML AMP ONE (10:48)
[2022-12-30] MEDS ORDERED: ceFAZolin 1,000 MG in SODIUM CHLORIDE 0.9% 1,000 ML IRRIGATION ONE (11:00)
--- NOTE | 2022-12-30 11:44 | P.OP ---
Date of Procedure: 12/30/22 Preoperative Diagnosis: Delayed union left femoral shaft fracture status post retrograde intramedullary nailing Postoperative Diagnosis: Same Procedure(s) Performed: Removal locking screws left proximal femur 2 Anesthesia: LUNA Surgeon: David Hastings Flight Attendant Ramp #1: Kar Leyva Estimated Blood Loss (ml): 10 Pathology: none sent Condition: stable Disposition: PACU Indications for Procedure: The patient's a 67-year-old female who previously underwent retrograde intramedullary nailing of a left midshaft femur fracture in June in [place] who presents with persistent thigh pain and evidence of delayed union. He discussion of the risks and benefits of operative intervention was made with patient. She opted to proceed. We planned on proceeding with dynamization of her nail with removal of the proximal locking screws. Specific risks to include neurovascular injury, possible persistence of delayed union and need for subsequent procedures was discussed. Informed consent was obtained. Operative Findings: As below Description of Procedure: The patient was brought to the operating room, and after induction of general anesthesia was placed supine on the radiolucent table. Fluoroscopy was used to aid in localizing the proximal locking screws. The left lower extremity was prepped and draped in normal fashion. A 2 cm incision was then made along the anterolateral left proximal thigh. The skin was incised sharply. Subcu tissues were divided bluntly. Blunt dissection was made down to level of the femoral shaft. The screws were identified. These were then easily removed with the aid of fluoroscopy. The wound was irrigated with normal saline. Subcu tissues reapproximated interrupted 2-0 Vicryl sutures. Skin was reapproximated with 3-0 nylon sutures. A sterile dressing was applied. The patient was awoken from general anesthesia and transferred to recovery room in good condition. Blood loss was estimated at 10 mL. No complications were incurred. Sponge and needle counts were correct at the end of the case.
[2022-12-30 11:52] VITALS: TEMP 98
[2022-12-30] MEDS ORDERED: fentaNYL (PF) 50 MCG/1 ML VIAL IVP ONE (12:05)
[2022-12-30 12:53] VITALS: RESP 18
[2022-12-30 13:12] VITALS: BP 144/83; PULSE 66
--- NOTE | 2022-12-30 14:12 | FL ---
Intraoperative/procedural fluoroscopic services were provided. Total fluoroscopy time is 22.7 seconds with a total of 3 submitted images to PACS. Please see the operative/procedural note for further det ails. DAP: 0.8096 mGym2
== END 2022-12-30 13:29 | disposition home or self-care (01) ==
LOC: OR 09:06
PROVIDERS: ATTEND Orthopaedic Surgery
DX: S72.302A Unspecified fracture of shaft of left femur, initial encounter for closed fracture (principal); I10 Essential (primary) hypertension; K21.9 Gastro-esophageal reflux disease without esophagitis; Z87.891 Personal history of nicotine dependence; Z80.1 Family history of malignant neoplasm of trachea, bronchus and lung; Z79.82 Long term (current) use of aspirin; Z79.899 Other long term (current) drug therapy; Z88.5 Allergy status to narcotic agent; Z88.0 Allergy status to penicillin; X58.XXXA Exposure to other specified factors, initial encounter
CPT/HCPCS: 20680; 73501; J2250; J0330; J1100; J2710; J0690 ×2; J2405; J3010 ×2; J2704; J2001

== ENCOUNTER → 2023-04-17 | Outpatient (CLI) | payer MEDICARE ==
--- NOTE | 2023-04-20 12:57 | MR ---
EXAMINATION TYPE: MR shoulder RT wo con DATE OF EXAM: 04/17/2023 COMPARISON: Outside right shoulder x-ray February 01, 2023 HISTORY: Right shoulder pain that goes down arm into hand for 3 months with difficulty raising arm ov erhead TECHNIQUE: Multiplanar, multisequence imaging of the right shoulder is performed without contrast. FINDINGS: Rotator Cuff: Significant retracted tear of at least a majority of the supraspinatus tendon to the le janette of the acromion. A few fibers anteriorly remain intact. Significant tearing involving at least th e anterior one half of the infraspinatus tendon. Subscapularis tendon is intact axial image 16 for re ference. There is mild to moderate fat replaced atrophy of the supraspinatus and infraspinatus muscle s. Acromioclavicular Joint: Moderate to severe narrowing with 6 mm subchondral cyst involving the group fitness instructor ior aspect of the clavicle. Moderate capsular hypertrophy. Glenohumeral Joint: Small to moderate-sized joint effusion. No significant spurring. Significant narr owing. Labrum: Superior labrum shows increased signal consistent with significant tearing.. Biceps Tendon: The long head of biceps is seen in normal location distally. There is marked abnormal signal and thickening with full-thickness retracted tear from the labral anchor. Bone marrow signal: No focal abnormal marrow signal is appreciated. Other: No additional significant abnormality is appreciated. IMPRESSION: 1. Retracted tear of the long head of biceps tendon from the labral anchor. 2. Superior labral tear. 3. Significant tearing of the supraspinatus and infraspinatus tendons. 4. Moderate to advanced degenerative changes in the shoulder as detailed above.
== END | disposition home or self-care (01) ==
LOC: RADMRIMAIN 20:05
PROVIDERS: ATTEND Orthopaedic Surgery
DX: M19.011 Primary osteoarthritis, right shoulder (principal); M75.111 Incomplete rotator cuff tear or rupture of right shoulder, not specified as traumatic

== ENCOUNTER → 2023-04-21 | Outpatient (CLI) | payer MEDICARE ==
[2023-04-22 02:09] LABS: Basophils # (A) 0.06 X 10*3/uL (0.00-0.10); Basophils % (A) 0.7 %; Eosinophils % (A) 1.1 %; HCT 41.1 % (37.2-46.3); HGB 13.5 g/dL (12.0-15.0); Lymphocytes # (A) 2.53 X 10*3/uL (0.90-5.00); Lymphocytes % (A) 27.9 %; MCH 29.3 pg (27.0-32.0); MCHC 32.8 g/dL (32.0-37.0); MCV 89.2 FL (80.0-97.0); Mean Platelet Volume 9.8 FL (9.5-12.2); Monocytes # (A) 1.17 X 10*3/uL (0.20-1.00); Monocytes % (A) 12.9 %; NRBC Per 100 WBC 0 X 10*3/uL (0.00-0.01); Neutrophils # (A) 5.18 X 10*3/uL (1.80-7.70); Neutrophils % (A) 57.1 %; Platelet Count 364 X 10*3/uL (140-440); RBC 4.61 X 10*6/uL (4.10-5.20); RDW 13.1 % (11.5-14.5); WBC 9.07 X 10*3/uL (4.50-10.00)
[2023-04-22 02:24] LABS: Blood Urea Nitrogen 16.8 mg/dL (9.0-27.0); Calcium 10.2 mg/dL (8.7-10.3); Chloride 99 mmol/L (96-109); Glucose 112 mg/dL (70-110); Potassium 3.9 mmol/L (3.5-5.5); Sodium 138 mmol/L (135-145)
== END | disposition home or self-care (01) ==
LOC: LABWHC1 14:42
PROVIDERS: ATTEND Orthopaedic Surgery
DX: Z01.812 Encounter for preprocedural laboratory examination (principal); M75.41 Impingement syndrome of right shoulder
CPT/HCPCS: 36415; 80048; 85025

== ENCOUNTER → 2023-04-28 | Day surgery (SDC) | payer MEDICARE ==
[2023-04-25 11:02] VITALS: BMI 34.9
--- NOTE | 2023-04-27 08:22 | P.HPOR ---
History of Present Illness H&P Date: 04/27/23 Chief Complaint: Right shoulder pain The patient is a 67-year-old retired female who presents with progressive right shoulder pain for the past year worsening recently. She's having pain with any overhead activity and at night. She tried a home stretching regimen along with medications and injection without much relief. She is having daily symptoms that significantly limit her. Review of Systems Negative except as in HPI Past Medical History Past Medical History: Cancer, GERD/Reflux, Hypertension, Osteoarthritis (OA) Additional Past Medical History / Comment(s): Fx LT ARM-12/11/16, osteoporosis History of Any Multi-Drug Resistant Organisms: None Reported Past Surgical History: Back Surgery, Section, Orthopedic Surgery, Tubal Ligation Additional Past Surgical History / Comment(s): back surgery X5 lft femur fx repair (jun 2022 [place] ) and 2nd surgery by Dr Hastings. COLONOSCOPY. Left total knee arthroplasty. Right knee arthroscopy Past Anesthesia/Blood Transfusion Reactions: No Reported Reaction Past Psychological History: No Psychological Hx Reported Smoking Status: Former smoker Past Alcohol Use History: Occasional Additional Past Alcohol Use History / Comment(s): STARTED SMOKING AT AGE 15 QUIT IN 1999 SMOKED 2-3 CIG A DAY. DRINKS LESS THAN 7 DRINKS/WEEK., HX DRINKS 12- 18 BEERS PER WEEK IN SUMMER. Past Drug Use History: None Reported - Past Family History Mother Family Medical History: Cancer Additional Family Medical History / Comment(s): LUNG CANCER Medications and Allergies Home Medications Medication Instructions Recorded Confirmed Type Omeprazole [PriLOSEC] 20 mg PO DAILY 12/17/14 04/25/23 History hydroCHLOROthiazide 25 mg PO DAILY 12/30/22 04/25/23 History Acetaminophen [Tylenol Arthritis] 1,300 mg PO TID PRN 04/25/23 04/25/23 History Cetirizine HCl [Zyrtec] 10 mg PO DAILY 04/25/23 04/25/23 History Sennosides-Docusate Sodium 1 tab PO DAILY PRN 04/25/23 04/25/23 History [Senokot-S] Allergies Allergy/AdvReac Type Severity Reaction Status Date / Time morphine Allergy Itching, Verified 04/25/23 10:38 hives oxycodone HCl Allergy Hallucinati Verified 04/25/23 10:23 [From OxyContin] ons tramadol Allergy Rash/Hives Verified 04/25/23 10:23 Penicillins AdvReac SEVERE Verified 04/25/23 10:23 YEAST INFECTION Physical Examination - Shoulder right Tenderness with palpation: anterior, bicipital groove Pain: with abduction, with forward flexion ROM: forward flexion: 140 degrees ROM: internal rotation: lower lumbar ROM: external rotation: 30 degrees Crepitus with motion: Yes Strength: abduction: 4/5 Strength: external rotation: 4/5 Tests: internal impingement tests: positive, external impingment tests: positive Results The patient is a well-developed well-nourished female proximal 5 foot 7, 232 pounds of endomorphic habitus. HEENT exam is nonfocal, neck supple. She's tender about the right shoulder anterior subacromial space. She has moderate subacromial crepitus. Leggett, Neer sign, and speed tests are positive. Her distal neurovascular appears intact in the right upper extremity. - Diagnostic results Shoulder MRI: image reviewed (Right shoulder MRI is evaluated and shows evidence of a supraspinatus and infraspinatus tear with retraction. There is some fatty infiltration. A superior labral tear was noted along with proximal biceps rupture.) Assessment and Plan Assessment: Symptomatic right rotator cuff tear Right shoulder superior labral tear Plan: I talked to the patient in length regarding her condition along with treatment options. At this point she is quite symptomatic despite attempted conservative measures. After thorough discussion shaft proceed with surgery. We'll plan to proceed with arthroscopic evaluation of the right shoulder with possible rotator cuff repair versus debridement along with subacromial decompression and superior labral debridement. We will likely perform that as an outpatient procedure. Risks and benefits were discussed at length in layman's terms.
[~2023-04-28] MED LIST changes: +DEXAMETHASONE SOD PHOSPHATE 4 MG/ML 1 ML VIAL ONE; +EPINEPHrine (PF) 1 ML in SODIUM CHLORIDE 0.9% IRRIGATIO 3,000 ML IRRIGATION ONE; +LACTATED RINGERS 1,000 ML IV ONE; +LIDOCAINE 1% INJ 10MG/ML (20 ML MDV) ONE; +MIDAZOLAM 2 MG/2 ML VIAL IVP ONE; +PHENYLEPHRINE-0.9% NACL SYG 1,000 MCG/10 ML SYRINGE ONE; +PROPOFOL 10 MG/ML 20 ML VIAL IV ONE; +ROPIVACAINE 5 MG/ML 30 ML VIAL ONE; +SUCCINYLCHOLINE CHLORIDE 200 MG/10 ML VIAL IV ONE; +ePHEDrine 50 MG/ML 1 ML VIAL ONE
--- NOTE | 2023-04-28 09:26 | P.OP ---
Date of Procedure: 04/28/23 Preoperative Diagnosis: Right rotator cuff tearsymptomatic Postoperative Diagnosis: 5 cm rotator cuff tear, proximal biceps rupture Procedure(s) Performed: Right shoulder arthroscopic subacromial decompression/rotator cuff repair/biceps debridement Implants: Arthrex 4.75 mm swivel lock anchor x2, 5.5 mm swivel lock anchor 2 Anesthesia: sid CARRASCO Surgeon: David Hastings Estimated Blood Loss (ml): 10 Pathology: none sent Condition: stable Disposition: PACU Indications for Procedure: The patient's a 67-year-old female who presents with progressive right shoulder pain despite conservative measures. A discussion of the risks and benefits of operative intervention versus continued conservative measures was made with the patient. She opted to proceed with surgery. Operative risks to include infection, neurovascular injury, development of blood clots, possible tendon rerupture, possible postoperative stiffness, and possible need for subsequent procedures was discussed. Informed consent was obtained. Operative Findings: As below Description of Procedure: The patient was brought to the operating room, and after induction of general anesthesia was placed in a beachchair position. A preoperative interscalene block was placed for postoperative analgesia. I examined the right shoulder. There was no gross block to passive motion or gross glenohumeral instability. The right upper extremity was prepped and draped in normal fashion. The bony outlines the acromion, distal clavicle, and coracoid process were outlined with a skin marker. The glenohumeral joint was inflated with 50 mL of saline utilizing a spinal needle from posterior approach. A posterior portal was made through a 5 mm skin incision 1 cm medial and inferior to the posterior lateral border time. A blunt trocar was used to easily into the joint. Diagnostic arthroscopy was performed. An anterior portal was made just lateral to the coracoid process entering the joint above the subscapularis tendon. The ag bscapularis tendon appeared to be intact. Anterior labrum was intact. The inferior recess was inspected. The posterior labrum was intact. There was a rupture of the proximal biceps with remnant in the joint. This was debrided back with a motorized shaver to the superior labrum. On inspection the rotator cuff, a retracted tear involving the supraspinatus and infraspinatus was noted to level the mid humeral head. The arthroscope was placed into the subacromial space. A lateral portal was made 2 centimeters inferior to the anterior lateral border of the acromion. The rotator cuff was then mobilized with a traction suture. This was then brought back to the greater tuberosity. The soft tissue on the undersurface of the acromion was debrided with a motorized shaver and electrocautery clearly defining the anterior medial and lateral borders as well as the distal clavicle. An anterior inferior acromioplasty was performed with a motorized pati starting anterolateral, then extending this posteriorly, then extending this medially. I converted to a flat acromion and this was verified in the posterior and lateral viewing portals. The greater tuberosity was lightly decorticating with a shaver down to a bleeding bony surface. An accessory superior lateral portal was made just off the lateral edge of the acromion for anchor placement. 2 anchors were then placed just off the a rticular surface with the appropriate starting awl. 4.75 mm anchors preloaded with #2 fiber tape were placed. Good purchase was obtained. These fiber tapes were then passed the rotator cuff with a scorpion suture passer. A lateral row was created crisscrossing these tapes. 5.5 mm swivel lock anchors x2 were placed laterally. Good purchase was obtained. Final arthroscopic view showed adequate compression at the footprint. The arthroscope was then removed. The portals were closed with simple 3-0 nylon sutures. A sterile dressing was applied in addition to an abductor brace. The patient was then awoken from general anesthesia and transferred to recovery room in good condition. Blood loss was estimated at 10 mL. No complications were incurred. Sponge and needle counts were correct in the case.
[2023-04-28 09:36] VITALS: TEMP 97.6
[2023-04-28 10:54] VITALS: BP 123/79; PULSE 91; RESP 14
--- NOTE | 2023-04-29 11:18 | P.ANPRN ---
Procedure Note - Anesthesia - Nerve Block Performed Right Interscalene Single Time Out Performed: Yes Date of Procedure: 04/28/23 Procedure Start Time: :14 Procedure Stop Time: :21 Location of Patient: PreOp Indication: Acute Post-Operative Pain, Requested by Surgeon Sedation Type: Sedate with meaningful contact maintained Preparation: Sterile Prep Position: Supine Needle Types: Pajunk Needle Gauge: 21 Ultrasound used to visualize needle placement: Yes Ultrasound used to observe medication spread: Yes Blood Aspirated: No Pain Paresthesia on Injection Noted: No Resistance on Injection: Normal Image Stored and Saved: Yes Events: Uneventful and Well Tolerated (Ropivacaine 0.5% 20 mL plus dexamethasone 4 mg)
== END | disposition home or self-care (01) ==
LOC: OR 05:42
PROVIDERS: ATTEND Orthopaedic Surgery
DX: M75.101 Unspecified rotator cuff tear or rupture of right shoulder, not specified as traumatic (principal); G89.18 Other acute postprocedural pain; K21.9 Gastro-esophageal reflux disease without esophagitis; I10 Essential (primary) hypertension; M19.90 Unspecified osteoarthritis, unspecified site; M81.0 Age-related osteoporosis without current pathological fracture; Z87.891 Personal history of nicotine dependence; Z80.1 Family history of malignant neoplasm of trachea, bronchus and lung; Z88.5 Allergy status to narcotic agent; Z88.0 Allergy status to penicillin; Z79.899 Other long term (current) drug therapy; Z98.51 Tubal ligation status; Z96.652 Presence of left artificial knee joint; Z98.890 Other specified postprocedural states
CPT/HCPCS: 29827; 29826; 64415; C1713 ×3; C1894; J2250; J0330; J1100; J0690; J2405; J0171; J2001; J2795; J2704; J2371

== ENCOUNTER → 2023-05-17 | Outpatient (CLI) | payer MEDICARE ==
--- NOTE | 2023-05-17 19:27 | BD ---
EXAMINATION TYPE: Axial Bone Density DATE OF EXAM: 05/17/2023 CLINICAL HISTORY: 67 years old Female. ICD-10 CODE: M81.0 AGE RELATED OSTEOPOROSIS WITHOUT CURRENT P ATH Height: 66 Weight: 232 FRAX RISK QUESTIONS: Family History (Parent hip fracture): yes History of Fracture in Adulthood: yes RISK FACTORS HISTORY OF: hx of lt femoral fracture with rodding Spine Fracture: spinal stenosis, surgical repair, Surgery to Spine and left femur rodding, and 2022 Family History of Osteoporosis: yes Postmenopausal woman: yes, age 48 Lost more than 2 inches in height since high school: yes Hyperparathyroidism: no Adrenal Insufficiency: no MEDICATIONS: Osteoporosis Medications: yes, fosamax, still taking, 10+ yrs now Additional Medications: bp meds, reflux meds, fosamax, multivitamin, Additional History: osteoporosis, reflux, hypertension, bilat knee replacements, rotator cuff repair on rt shoulder, hardware in back, spinal stenosis, EXAM MEASUREMENTS: Bone mineral densitometry was performed using the [employer] System. spine not scanned, surgical repair with much hardware. Bone mineral density about the R hip (g/cm2): 1.001 T Score values are as follows: -----R Neck: -0.6 -----R Total: -0.1 Z Score values are as follows: -----R Neck: 0.3 -----R Total: 0.5 Bone mineral density has: Increased 8.9% since study of: 10.29.2018 Bone mineral density about the L Wrist (g/cm2): 0.628 T Score values are as follows: -----Dist. R+U: 3.5 -----Prox. R+U: 0.1 -----Radius total: 0.1 Z Score values are as follows: -----Dist. R+U: 5.3 -----Prox. R+U: 1.8 -----Radius total: 1.8 Bone mineral density has: Decreased -0.9% since study of: 10.29.2018 FRAX%s: The graph provided illustrates a 18.8% chance for a major osteoporotic fx and a 1.3% chance f or the hips probability for fx in 10 years time. IMPRESSION: Normal (Values between +1 and -1 indicate normal bone mass). Consider repeating this study in 5 year s or sooner if there is some new clinical indication. NOTE: T-SCORE=SD OF THE YOUNG ADULT MEAN.
--- NOTE | 2023-05-21 17:59 | MM ---
Reason for Exam: Screening (asymptomatic). Last screening mammogram was performed 12 month(s) ago. Patient History: Menarche at age 11. First Full-Term at age 25. Postmenopausal. Other cancer, age 63. Patient used Hormonal Contraceptives for 30 years. Risk Values: Carole 5 year model risk: 1.9%. NCI Lifetime model risk: 6.2%. Prior Study Comparison: 04/06/2020 Bilateral Screening Mammogram, [facility]. 05/14/2021 Bilateral Screening Mammogram, [facility]. 05/16/2022 Bilateral MG 3D screening mammo w/cad, [facility]. Tissue Density: There are scattered fibroglandular densities. Findings: Analyzed By CAD. Unchanged asymmetric density medial right breast as well as the subareolar left breast on the MLO view. There is no suspicious group of microcalcifications or new suspicious mass in either breast. Overall Assessment: Benign, BI-RAD 2 Management: Screening Mammogram of both breasts in 1 year. . Patient should continue monthly self-breast exams. A clinical breast exam by your physician is recommended on an annual basis. This exam should not preclude additional follow-up of suspicious palpable abnormalities. Note on Carole scores and lifetime risk: 1. A Carole score greater than 3% is considered moderate risk. If this is the case, consider specialist referral to assess eligibility for a risk reducing agent. 2. If overall lifetime risk for the development of breast cancer is 20% or higher, the patient may qualify for future screening with alternating mammogram and breast MRI. Electronically signed and approved by: Tj Jean M.D. Radiologist
== END | disposition home or self-care (01) ==
LOC: RADMAMWWP 10:00
PROVIDERS: ATTEND Family Medicine
DX: Z12.31 Encounter for screening mammogram for malignant neoplasm of breast (principal); M81.0 Age-related osteoporosis without current pathological fracture; Z78.0 Asymptomatic menopausal state; Z92.0 Personal history of contraception
CPT/HCPCS: 77063; 77067; 77080

== ENCOUNTER → 2023-10-12 | Outpatient (CLI) | payer MEDICARE | END | disposition home or self-care (01) | LOC: LABWHC1 10:51 | PROVIDERS: ATTEND Orthopaedic Surgery | DX: Z01.812 Encounter for preprocedural laboratory examination (principal); M12.811 Other specific arthropathies, not elsewhere classified, right shoulder; Z22.322 Carrier or suspected carrier of Methicillin resistant Staphylococcus aureus | CPT/HCPCS: 87070 ==

== ENCOUNTER 2023-11-22 11:11 | Day surgery (SDC) | payer MEDICARE ==
[2023-11-17 11:44] VITALS: BMI 35.2
--- NOTE | 2023-11-20 10:29 | P.HPOR ---
History of Present Illness H&P Date: 11/20/23 Chief Complaint: Right shoulder pain and weakness The patient is a 68-year-old female who presents with right shoulder pain and weakness. She underwent previous arthroscopic rotator cuff repair in April 2023. She is having pain with overhead activity and at night. She also has popping and snapping. Initially she did well after her surgery, however her symptoms have worsened. She's been working on her home ray stretches and strengthening. Review of Systems As per HPI Past Medical History Past Medical History: Cancer, GERD/Reflux, Hypertension, Osteoarthritis (OA) Additional Past Medical History / Comment(s): Fx LT ARM-12/11/16, osteoporosis, VULVA CANCER, History of Any Multi-Drug Resistant Organisms: None Reported Past Surgical History: Back Surgery, Section, Joint Replacement, Orthopedic Surgery, Tubal Ligation Additional Past Surgical History / Comment(s): back surgery X5 lft femur fx repair (jun 2022 [place] ) and 2nd surgery by Dr Hastings. COLONOSCOPY. BILAT TKA. Right knee arthroscopy. REPAIR TORN RT BICEP 04/2023 Past Anesthesia/Blood Transfusion Reactions: No Reported Reaction Smoking Status: Former smoker - Past Family History Mother Family Medical History: Cancer Additional Family Medical History / Comment(s): LUNG CANCER Medications and Allergies Home Medications Medication Instructions Recorded Confirmed Type Omeprazole [PriLOSEC] 20 mg PO DAILY 12/17/14 11/17/23 History hydroCHLOROthiazide 25 mg PO DAILY 12/30/22 11/17/23 History Acetaminophen [Tylenol Arthritis] 1,300 mg PO TID PRN 04/25/23 11/17/23 History Ascorbic Acid [Vitamin C] 1,000 mg PO DAILY 11/17/23 11/17/23 History Fexofenadine HCl [Venecia Allergy] 180 mg PO DAILY 11/17/23 11/17/23 History Potassium Chloride [K-Tab ER] 20 meq PO DAILY 11/17/23 11/17/23 History Allergies Allergy/AdvReac Type Severity Reaction Status Date / Time morphine Allergy Itching, Verified 11/17/23 11:29 hives oxycodone HCl Allergy Hallucinati Verified 11/17/23 11:29 [From OxyContin] ons tramadol Allergy Rash/Hives Verified 11/17/23 11:29 Penicillins AdvReac SEVERE Verified 11/17/23 11:29 YEAST INFECTION Physical Examination - Shoulder right Appearance: effusion Effusion grade: grade 1 Tenderness with palpation: anterior, bicipital groove Pain: with abduction, with forward flexion ROM: forward flexion: 140 degrees ROM: internal rotation: lower lumbar ROM: external rotation: 30 degrees Crepitus with motion: Yes Strength: abduction: 3/5 Strength: external rotation: 3/5 Tests: internal impingement tests: positive, external impingment tests: positive Results The patient is well-developed well-nourished female approximately 5 foot 7, 230 pounds of endomorphic habitus. HEENT exam is nonfocal, neck is supple. She's tender about the right shoulder anterior subacromial space. Moderate crepitus is noted. Impingement test, Neer test, and speed tests are positive. Her dista l neurovascular exam otherwise appears intact in the right upper extremity. - Diagnostic results Shoulder x-ray: image reviewed (3 views of the right shoulder obtained in the office shows moderate to severe glenohumeral joint space narrowing with diminished humeral head to acromial distance.) Assessment and Plan Assessment: Right rotator cuff arthropathy/rotator cuff re-tear Plan: I talked to the patient at length regarding her condition along with treatment options. At this point she is quite symptomatic having pain and weakness appears to have torn her rotator cuff. A discussion of the risks and benefits of continued conservative measures versus operative intervention was made with patient. She opted to proceed. We'll plan to pursue right reverse total shoulder arthroplasty. Risks and benefits were discussed at length in layman's terms. We will like to keep the patient for 24 hold postoperatively.
[~2023-11-22 11:11] MED LIST changes: -DEXAMETHASONE SOD PHOSPHATE 4 MG/ML 1 ML VIAL IV ONE; -DEXAMETHASONE SOD PHOSPHATE 4 MG/ML 1 ML VIAL ONE; -EPINEPHrine (PF) 1 ML in SODIUM CHLORIDE 0.9% IRRIGATIO 3,000 ML IRRIGATION ONE; -HYDROmorphone 0.5 MG/0.5 ML SYRINGE IVP PRN; -LACTATED RINGERS 1,000 ML IV ONE; -LACTATED RINGERS 1,000 ML IV SCH; -LIDOCAINE 1% INJ 10MG/ML (20 ML MDV) ONE; -MIDAZOLAM 2 MG/2 ML VIAL IV PRN; -MIDAZOLAM 2 MG/2 ML VIAL IVP ONE; -ONDANSETRON 4 MG/2 ML VIAL IVP ONE; -PHENYLEPHRINE-0.9% NACL SYG 1,000 MCG/10 ML SYRINGE ONE; -PROPOFOL 10 MG/ML 20 ML VIAL IV ONE; -ROPIVACAINE 5 MG/ML 30 ML VIAL ONE; -SUCCINYLCHOLINE CHLORIDE 200 MG/10 ML VIAL IV ONE; +TRANEXAMIC 1,000 MG/100ML-NACL 1,000 MG in SALINE 1 100ML.BAG IVPB PRN; -ePHEDrine 50 MG/ML 1 ML VIAL ONE; +fentaNYL (PF) 50 MCG/ML 2 ML AMP IV PRN
[2023-11-22] MEDS: LACTATED RINGERS 1,000 ML IV SCH (12:31)
[2023-11-22] MEDS: ACETAMINOPHEN TAB 500 MG TAB PO PRN (12:31)
[2023-11-22] MEDS: MELOXICAM 7.5 MG TAB PO PRN (12:32)
[2023-11-22] MEDS: ONDANSETRON 4 MG/2 ML VIAL IVP ONE (12:32)
[2023-11-22] MEDS: MIDAZOLAM 2 MG/2 ML VIAL IV ONE (12:45)
--- NOTE | 2023-11-22 13:00 | P.ANPRN ---
Procedure Note - Anesthesia - Nerve Block Performed Right Interscalene Single Time Out Performed: Yes Date of Procedure: 11/22/23 Procedure Start Time: 12:44 Procedure Stop Time: 12:49 Location of Patient: PreOp Indication: Acute Post-Operative Pain, Analgesia, Requested by Surgeon Sedation Type: Sedate with meaningful contact maintained Preparation: Sterile Prep Position: Sitting Needle Types: Pajunk Needle Gauge: 21 Ultrasound used to visualize needle placement: Yes Ultrasound used to observe medication spread: Yes Injectate: 0.5% Ropivacaine (see comment for volume) (rOPIV 20 ML+DECADRON 4MG. aTTEMPTx1. nO STIMULATION @0.5mA.) Blood Aspirated: No Pain Paresthesia on Injection Noted: No Resistance on Injection: Normal Image Stored and Saved: Yes Events: Uneventful and Well Tolerated
[2023-11-22] MEDS: DEXAMETHASONE SOD PHOSPHATE 4 MG/ML 1 ML VIAL IVP STA (13:03)
[2023-11-22] MEDS ORDERED: PHENYLEPHRINE 10 MG/ML VIAL ONE (13:18)
[2023-11-22] MEDS ORDERED: ROPIVACAINE 5 MG/ML 30 ML VIAL ONE (13:18)
[2023-11-22] MEDS ORDERED: DEXAMETHASONE SOD PHOSPHATE 4 MG/ML 1 ML VIAL ONE (13:18)
[2023-11-22] MEDS ORDERED: GLYCOPYRROLATE 0.2 MG/ML 2 ML VIAL ONE (13:18)
[2023-11-22] MEDS ORDERED: TRANEXAMIC 1,000 MG/100ML-NACL PREMIX BAG ONE (13:18)
[2023-11-22] MEDS ORDERED: PROPOFOL 10 MG/ML 20 ML VIAL IV ONE (13:18)
[2023-11-22] MEDS ORDERED: SUCCINYLCHOLINE CHLORIDE 200 MG/10 ML VIAL IV ONE (13:18)
[2023-11-22] MEDS ORDERED: LIDOCAINE 1% INJ 10MG/ML (20 ML MDV) ONE (13:18)
[2023-11-22] MEDS ORDERED: SENNOSIDES-DOCUSATE SODIUM 1 EACH TAB PO PRN (15:07)
[2023-11-22] MEDS ORDERED: HYDROcodone/APAP 5-325MG 1 EACH TAB PO PRN (15:07)
[2023-11-22] MEDS ORDERED: hydrOXYzine pamoate 25 MG CAP PO PRN (15:07)
[2023-11-22] MEDS ORDERED: HYDROmorphone 0.5 MG/0.5 ML SYRINGE IVP PRN ×2 (15:07)
--- NOTE | 2023-11-22 15:21 | P.OP ---
Date of Procedure: 11/22/23 Preoperative Diagnosis: Right rotator cuff retear/arthropathy Postoperative Diagnosis: Same Procedure(s) Performed: Right reverse total shoulder arthroplasty Implants: Depuy Delta Xtend size 12 press-fit humeral stem, size 2 epiphysis, 38+9 articular surface, 38 mm standard glenosphere with standard baseplate. Anesthesia: sid CARRASCO Surgeon: David Hastings Paste Worker #1: Kar Leyva Estimated Blood Loss (ml): 150 Pathology: none sent Condition: stable Disposition: PACU Indications for Procedure: The patient is a 68-year-old female who previously underwent right shoulder arthroscopic rotator cuff repair presents after recurrence of her tear. A discussion of the risks and benefits of operative intervention versus continued conservative measures was made with the patient. She opted to proceed with surgery. Operative risks include infection, neurovascular injury, fracture, instability, possible component loosening/failure and possible need for subsequent procedures was discussed. Informed consent was obtained. Operative Findings: As below Description of Procedure: The patient was brought to the operating room, and after induction of general anesthesia was placed in a beachchair position. The bony prominences were appropriately padded. I examined the right shoulder. There was moderate lack of passive forward elevation and external rotation. The right upper extremity was prepped and draped in normal fashion. The bony outlines the coracoid process, distal clavicle, and acromion were outlined with a skin marker. A pulse centimeter deltopectoral incision was made lateral to the coracoid process. Skin was incised sharply. Subcutaneous tissues were divided bluntly. Electrocautery was used for hemostasis. The cephalic vein was identified and gently retracted laterally with the deltoid. The deltopectoral was bluntly developed. Subdeltoid adhesions were then released. The self-retaining retractor was placed. The conjoined tendon was retracted medially and the deltoid laterally. The biceps was identified. Its sheath was opened. A biceps tenotomy was performed along the remaining tendon did retract distally. Pseudocapsule was excised. The head was then exposed. The shoulder was dislocated. A starting hole was made in line with the humeral shaft. The canal was reamed by hand up to size 12. There was good distal chatter. The cutting guide was then placed. I planned on 20 of retroversion. The humeral head cut was then made. The bone was removed in one fragment. Residual inferomedial osteophytes were removed flush with the lime cortical bone. Attention was then paid towards preparing the glenoid. An anterior and posterior retractors placed. The labrum was released from the 12-6 o'clock position. Remaining biceps was removed as well. A guidepin was placed in the inferior aspect of the glenoid with the guide slightly tilting inferior. The reamer was used down to a bleeding bony surface. The central peg hole was drilled. The standard baseplate was inserted with good purchase. Inferior, superior, and posterior locking screws the appropriate length were placed. Good purchase was obtained. The 38 mm standard glenosphere was inserted over a guidewire. This was fully seated. Care was taken to avoid any soft tissue interposition. Attention was then paid towards preparing the proximal humerus. The appropriate broach was placed and 20 of retroversion and was fully seated. An eccentric size 2 epiphyseal reamer was utilized. A size 12 stem with a size 2 epiphysis was placed and 20 of retroversion. Trial reduction was obtained with a 38 mm + 9 articular surface. The shoulder was taken through range of motion. He was felt to be stable in flexion and extension with internal and external rotation. I felt there was adequate advent of soft tissue tension judging off the conjoined tendon. The shoulder was gently dislocated. The trial components were then removed. The final size 12 press-fit stem along with a size 2 epiphysis was fully seated. There was good rotational stability. The 38 mm + 9 articular surface was impacted. The shoulder again was gently reduced and taken through range of motion. Again it was felt to be stable in all planes. Pulsatile lavage was utilized. The subscapularis was a attached to the lesser tuberosity with #2 Ethibond suture. The deltopectoral interval was closed with interrupted 2-0 Vicryl sutures. The skin was reapproximated with 3-0 subcuticular Prolene suture. Steri-Strips were applied. A sterile dressing was applied. A sling was placed. The patient was awoken from general anesthesia and transferred to recovery room in good condition. Blood loss was estimated at 150 mL. No complications were incurred. Sponge and needle counts were correct at the end the case. Kar MELGAR assisted during the major components of the case to include exposure, glenoid and humeral preparation, implantation, and closure.
--- NOTE | 2023-11-22 16:03 | XR ---
EXAMINATION TYPE: XR shoulder limited RT DATE OF EXAM: 11/22/2023 CLINICAL HISTORY: Status post reverse right shoulder shoulder arthroplasty TECHNIQUE: Single view of the right shoulder is obtained immediately postoperatively. COMPARISON: Outside Right shoulder x-ray october. FINDINGS: Metallic hardware from reverse total right shoulder arthroplasty is now present. Hardware p osition is satisfactory. Evidence of recent surgery with surrounding subcutaneous gas is noted. IMPRESSION: As above.
[2023-11-22] MEDS: droPERidol 5 MG/2 ML VIAL IVP ONE (17:00)
[2023-11-22 18:29] LABS: Basophils % (A) 0 %; Eosinophils % (A) 0 %; HCT 37.9 % (34.0-46.0); HGB 13.1 gm/dL (11.4-16.0); Lymphocytes # (A) 0.9 k/uL (1.0-4.8); Lymphocytes % (A) 6 %; MCH 31.1 pg (25.0-35.0); MCHC 34.6 g/dL (31.0-37.0); MCV 89.9 fL (80.0-100.0); Mean Platelet Volume 7.3; Monocytes # (A) 0.4 k/uL (0-1.0); Monocytes % (A) 2 %; Neutrophils # (A) 15.4 k/uL (1.3-7.7); Neutrophils % (A) 92 %; Platelet Count 292 k/uL (150-450); RBC 4.21 m/uL (3.80-5.40); RDW 13.2 % (11.5-15.5); WBC 16.8 k/uL (3.8-10.6)
[2023-11-22] MEDS: LORATADINE 10 MG TAB PO ONE (18:35)
--- NOTE | 2023-11-22 20:48 | P.CONS ---
History of Present Illness - Reason for Consult Consult date: 11/22/23 Medical management Requesting physician: David Hastings - Chief Complaint Right shoulder surgery - History of Present Illness This is a 68-year-old patient, follows with Dr. Nadine Pimentel. Chronic stable medical conditions include GERD, hypertension, primary osteoarthritis. Prior history of vulvar cancer. Patient has undergone right reverse shoulder arthroplasty. Currently pain has been controlled. Numbness in the arm. No nausea vomiting. No cardiac sym ptoms. Review of systems: GEN.: None EYES: None HEENT: None NECK: None RESPIRATORY: None CARDIOVASCULAR: None GASTROINTESTINAL: None GENITOURINARY: None MUSCULOSKELETAL: [Joint pains LYMPHATICS: None HEMATOLOGICAL: None PSYCHIATRY: None NEUROLOGICAL: None Social history: Lives with her . Started smoking age of 15 stopped in 1999. Smoked 2 to 3 cigarettes a day. Drinks less than 7 drinks a week. Physical examination: VITAL SIGNS: 69, 16, 139 x 58, 94% room air GENERAL: BMI 37.2, reclining bed awake tired. EYES: Pupils equal. Conjunctiva eric l. HEENT: External appearance of nose and ears normal, oral cavity grossly normal. NECK: JVD not raised; masses not palpable. HEART: First and second heart sounds are normal; no edema. LUNGS: Respiratory rate normal; decreased breath sounds. ABDOMEN: Soft, nontender, liver spleen not palpable, no masses palpable. PSYCH: Alert and oriented x3; mood and affect eric l. MUSCULOSKELETAL:No Clubbing/cyanosis;muscles-grossly intact. Right arm in a sling. Right shoulder dressing NEUROLOGICAL: Cranial nerves grossly intact; no facial asymmetry, power and sensation grossly intact. LYMPHATICS: No lymph nodes palpable in the axilla and neck INVESTIGATIONS, reviewed in the clinical context: November 22, 2023: White count 16.8 hemoglobin 13.1 platelets 292 Assessment plan: -Right rotator cuff retear arthrobreathy with a right reverse total shoulder arthroplasty IV cefazolin for infection prophylaxis. Right arm in a sling -Essential hypertension Hydrochlorothiazide -Primary osteoarthritis Tylenol as needed -GERD PPI -Obesity BMI 37.2 Weight loss measures Care was discussed patient at the bedside. Questions answered. Thank you Dr. Hastings Past Medical History Past Medical History: Cancer, GERD/Reflux, Hypertension, Osteoarthritis (OA) Additional Past Medical History / Comment(s): Fx LT ARM-12/11/16, osteoporosis, VULVA CANCER, History of Any Multi-Drug Resistant Organisms: None Reported Past Surgical History: Back Surgery, Section, Joint Replacement, Orthopedic Surgery, Tubal Ligation Additional Past Surgical History / Comment(s): back surgery X5 lft femur fx repair (jun 2022 [place] ) and 2nd surgery by Dr Hastings. COLONOSCOPY. BILAT TKA. Right knee arthroscopy. REPAIR TORN RT BICEP 04/2023 Past Anesthesia/Blood Transfusion Reactions: No Reported Reaction Past Psychological History: No Psychological Hx Reported Smoking Status: Former smoker Past Alcohol Use History: Occasional Additional Past Alcohol Use History / Comment(s): STARTED SMOKING AT AGE 15 QUIT IN 1999 SMOKED 2-3 CIG A DAY. DRINKS LESS THAN 7 DRINKS/WEEK., HX DRINKS 12- 18 BEERS PER WEEK IN SUMMER. Past Drug Use History: None Reported - Past Family History Mother Family Medical History: Cancer Additional Family Medical History / Comment(s): LUNG CANCER Medications and Allergies Home Medications Medication Instructions Recorded Confirmed Type Omeprazole [PriLOSEC] 20 mg PO DAILY 12/17/14 11/22/23 History hydroCHLOROthiazide 25 mg PO DAILY 12/30/22 11/22/23 History Acetaminophen [Tylenol Arthritis] 1,300 mg PO TID PRN 04/25/23 11/22/23 History Ascorbic Acid [Vitamin C] 1,000 mg PO DAILY 11/17/23 11/22/23 History Fexofenadine HCl [Venecia Allergy] 180 mg PO DAILY 11/17/23 11/22/23 History Potassium Chloride [K-Tab ER] 20 meq PO DAILY 11/17/23 11/22/23 History Allergies Allergy/AdvReac Type Severity Reaction Status Date / Time morphine Allergy Itching, Verified 11/22/23 12:04 hives oxycodone HCl Allergy Hallucinati Verified 11/22/23 12:04 [From OxyContin] ons tramadol Allergy Rash/Hives Verified 11/22/23 12:04 Penicillins AdvReac SEVERE Verified 11/22/23 12:04 YEAST INFECTION Physical Exam Vitals: Vital Signs Temp Pulse Pulse Pulse Resp BP Pulse Ox 11/22/23 16:06 69 16 139/58 94 L 11/22/23 15:51 72 16 119/71 93 L 11/22/23 15:36 69 16 134/74 100 11/22/23 15:21 72 14 119/62 99 11/22/23 13:20 64 16 142/74 100 11/22/23 12:25 97.4 F L 74 16 158/72 97 Intake and Output 11/22/23 11/22/23 11/22/23 06:59 14:59 22:59 Intake Total 550 100 Output Total 150 Balance 550 -50 Intake: IV 550 100 Output: Estimated Blood Loss 150 Other: Weight 107.7 kg 107.7 kg Results CBC & Chem 7: 11/22/23 18:06 Labs: Abnormal Lab Results - Last 24 Hours (Table) 11/22/23 Range/Units 18:06 WBC 16.8 H (3.8-10.6) k/uL Neutrophils # 15.4 H (1.3-7.7) k/uL Lymphocytes # 0.9 L (1.0-4.8) k/uL
[2023-11-22] MEDS: HYDROcodone/APAP 5-325MG 1 EACH TAB PO PRN (23:49)
[2023-11-23 07:22] VITALS: BP 136/85; PULSE 69; RESP 18; TEMP 97.1
[2023-11-23] MEDS: ASPIRIN 325 MG TAB PO SCH (08:41)
[2023-11-23] MEDS: ASCORBIC ACID 500 MG TAB PO SCH (08:41)
[2023-11-23] MEDS: LORATADINE 10 MG TAB PO SCH (08:42)
[2023-11-23] MEDS: PANTOPRAZOLE 40 MG TABLET PO SCH (08:42)
[2023-11-23] MEDS ORDERED: LORATADINE 10 MG TAB PO SCH (09:00)
[2023-11-23] MEDS: KETOROLAC 15 MG/ML 1 ML VIAL IVP STA (10:50)
[2023-11-23] MEDS: CYCLOBENZAPRINE 5 MG TAB PO PRN (10:50)
--- NOTE | 2023-11-23 11:04 | P.DS ---
Providers Date of admission: 11/22/2023 Expected date of discharge: 11/23/23 Attending physician: David Hastings Consults: 11/22/23 16:28 Consult Physician Routine Consulting Provider: Efe Meredith Consult Reason/Comments: Medical management Do you want consulting provider notified?: Yes Primary care physician: Nadine Pimentel Hospital Course: Date of admission: 11/22/2023 Date of discharge: 11/23/2023 Admission diagnosis: Right rotator cuff retear/arthropathy Discharge diagnosis: Same Attending physician: Dr. Hastings Surgical procedures: Reverse right total shoulder arthroplasty Brief history: Patient is a 68-year-old female with a history of Right rotator cuff retear/arthropathy. At this point patient has failed conservative treatment measures and has opted to proceed with a elective reverse right total shoulder arthroplasty. Hospital course: Details of patient's surgery can be found in operative report. Patient tolerated the procedure well and was subsequently transported to orthopedic floor. Patient's orthopeidc and medical care was provided daily. Patient had daily laboratory tests performed for evaluation of overall blood counts. Patient had daily physical therapy to include strengthening range of motion as well as education with walker ambulation. Patient was treated with aspirin for their postoperative DVT prophylaxis during their inpatient stay. Patient was noted to have a relatively uneventful postoperative course. Patient reported satisfactory pain control with oral pain medications by postoperative day 1. Patient showed satisfactory progress with physical therapy. Patient moved steadily through the program and had no difficulty meeting the goals by postoperative day 1. Given patient's otherwise satisfactory course and having met physical therapy goals, plan is to discharge patient home on postoperative day 1. Discharge condition/disposition: Patient will be discharged home in stable condition. Discharge medications: Instructions are given on resumption of patient's normal daily medications per primary care recommendation, in addition patient will be prescribed [place]; senna; aspirin; Flexeril. Orthopedic Discharge Instructions: 1. Wound care and infection precautions, keep incision dry and covered while showering, no lotions, creams, moisturizers. No soaking, pools, hot tubs. Do not scrub over incision. 2. Non-weight bearing right upper extremity until follow-up. 3. Ice when necessary. Do not exceed 20 minutes per hour with ice pack. 4. Utilize sling to right upper extremity until seen at first follow up appointment. 5. Pain meds and anticoagulants per prescription. 6. Pain medication has potential to cause constipation. Increase oral fluid and fiber intake. Contact primary care provider if you have not had a bowel movement within 48 hours after discharge. 7. No anti-inflammatory medication until discussed at first post operative visit, this including Motrin, Aleve, Mobic, Diclofenac. 8. Follow up in office at 2 weeks postop with Jose Lozada PA-C / Kar Leyva PA-C 9. Follow up with your primary care doctor 7-10 days after discharge. 10. Contact [facility] with any questions, . Keep incision clean, dry, intact. While showering, cover Steri-Strips with Saran wrap. Keep Steri-Strips on until follow-up appointment in office in 2 weeks Assessment: Right rotator cuff retear/arthropathy Procedures: Reverse right total shoulder arthroplasty Patient Condition at Discharge: Good Plan - Discharge Summary Discharge Rx Participant: Yes New Discharge Prescriptions: No Action Omeprazole [PriLOSEC] 20 mg PO DAILY hydroCHLOROthiazide 25 mg PO DAILY Acetaminophen [Tylenol Arthritis] 1,300 mg PO TID PRN PRN Reason: Pain Fexofenadine HCl [Venecia Allergy] 180 mg PO DAILY Potassium Chloride [K-Tab ER] 20 meq PO DAILY Ascorbic Acid [Vitamin C] 1,000 mg PO DAILY Discharge Medication List Omeprazole [PriLOSEC] 20 mg PO DAILY 12/17/14 [History] hydroCHLOROthiazide 25 mg PO DAILY 12/30/22 [History] Acetaminophen [Tylenol Arthritis] 1,300 mg PO TID PRN 04/25/23 [History] Ascorbic Acid [Vitamin C] 1,000 mg PO DAILY 11/17/23 [History] Fexofenadine HCl [Venecia Allergy] 180 mg PO DAILY 11/17/23 [History] Potassium Chloride [K-Tab ER] 20 meq PO DAILY 11/17/23 [History] Follow up Appointment(s)/Referral(s): Kar Leyva PAC [PHYSICIAN [employer]] - 2 Weeks Activity/Diet/Wound Care/Special Instructions: Orthopedic Discharge Instructions: 1. Wound care and infection precautions, keep incision dry and covered while showering, no lotions, creams, moisturizers. No soaking, pools, hot tubs. Do not scrub over incision. 2. Non-weight bearing right upper extremity until follow-up. 3. Ice when necessary. Do not exceed 20 minutes per hour with ice pack. 4. Utilize sling to right upper extremity until seen at first follow up appointment. 5. Pain meds and anticoagulants per prescription. 6. Pain medication has potential to cause constipation. Increase oral fluid and fiber intake. Contact primary care provider if you have not had a bowel movement within 48 hours after discharge. 7. No anti-inflammatory medication until discussed at first post operative visit, this including Motrin, Aleve, Mobic, Diclofenac. 8. Follow up in office at 2 weeks postop with Jose Lozada PA-C / Kar Leyva PA-C 9. Follow up with your primary care doctor 7-10 days after discharge. 10. Contact [facility] with any questions, . Keep incision clean, dry, intact. While showering, cover Steri-Strips with Saran wrap. Keep Steri-Strips on until follow-up appointment in office in 2 weeks Discharge Disposition: HOME SELF-CARE
--- NOTE | 2023-11-23 11:09 | P.PN ---
Subjective Progress Note Date: 11/23/23 Principal diagnosis: Right shoulder rotator cuff re-tear/arthropathy Patient examined bedside this morning lying in semirecumbent position with dressing present throughout upper extremity in sling present throughout upper extremity. Patient says she feels that the block from surgery yesterday is starting to wear off. Patient says she has urinated several times since surgery yesterday without issue. She says she has been walking around the room every few hours and is looking forward to going home today. Patient says the pain is controlled with oral medication. Patient says most of the pain is located at the biceps. Patient denies any other issues at this time. Objective - Vital Signs Vital signs: Vital Signs Temp 97.1 F L 11/23/23 07:21 Pulse 69 11/23/23 07:21 Resp 18 11/23/23 07:21 BP 136/85 11/23/23 07:21 Pulse Ox 97 11/23/23 07:21 FiO2 Intake & Output 11/22/23 11/23/23 11/23/23 18:59 06:59 18:59 Intake Total 650 Output Total 150 Balance 500 Weight 107.7 kg Intake: IV 650 Output: Estimated Blood Loss 150 Other: # Voids 1 - Exam Right upper extremity: Incision is clean, dry, and intact. Sling present throughout upper extremity. The bulky dressing is in good condition. There is minimal soft tissue swelling and ecchymosis surrounding the medial and lateral aspects of the incision. Calf is soft, no tenderness with palpation. Plantar flexion, dorsiflexion, EHL, FHL are intact. Sensory exam to light touch throughout the extremity is intact, dorsal pedis pulses 2+. - Labs CBC & Chem 7: 11/22/23 18:06 Labs: Abnormal Lab Results - Last 24 Hours (Table) 11/22/23 Range/Units 18:06 WBC 16.8 H (3.8-10.6) k/uL Neutrophils # 15.4 H (1.3-7.7) k/uL Lymphocytes # 0.9 L (1.0-4.8) k/uL Assessment and Plan Assessment: Right shoulder rotator cuff re-tear/arthropathy - Postop day 1 status post reverse right total shoulder arthroplasty Plan: 1. Right shoulder rotator cuff re-tear/arthropathy - reverse right total shoulder arthroplasty performed yesterday, 11/22/2023. Patient stabilizes when he was in present right upper extremity. Discharge home today. 2. Appreciate medical management 3. Pain management - [place] 4. DVT prophylaxis - aspirin 5. GI prophylaxis - senna 6. PT/OT - nonweightbearing right upper extremity. Maintain right upper extremity in sling. 7. Encourage incentive spirometer use 8. Discharge planning - home today Time with Patient: Less than 30
--- NOTE | 2023-11-24 09:30 | P.PN ---
Progress Note - Text Progress Note Date: 11/23/23 - Chief Complaint Right shoulder surgery - History of Present Illness This is a 68-year-old patient, follows with Dr. Nadine Pimentel. Chronic stable medical conditions include GERD, hypertension, primary osteoarthritis. Prior history of vulvar cancer. Patient has undergone right reverse shoulder arthroplasty. Currently pain has been controlled. Numbness in the arm. No nausea vomiting. No cardiac symptoms. November 22: Pain stable in the right shoulder. No nausea vomiting. Did tolerate some diet. Did ambulate. Current medications reviewed Social history: Lives with her . Started smoking age of 15 stopped in 1999. Smoked 2 to 3 cigarettes a day. Drinks less than 7 drinks a week. Physical examination: VITAL SIGNS: 97.1, 69, 18, 136/85, 97% room air GENERAL: BMI 37.2, reclining bed awake, comfortable EYES: Pupils equal. Conjunctiva eric l. HEENT: External appearance of nose and ears normal, oral cavity grossly normal. NECK: JVD not raised; masses not palpable. HEART: First and second heart sounds are normal; no edema. LUNGS: Respiratory rate normal; decreased breath sounds. ABDOMEN: Soft, nontender, liver spleen not palpable, no masses palpable. PSYCH: Alert and oriented x3; mood and affect eric l. MUSCULOSKELETAL:No Clubbing/cyanosis;muscles-grossly intact. Right arm in a sling. Right shoulder dressing. Good sensation in the hand fingers moving well. INVESTIGATIONS, reviewed in the clinical context: November 22, 2023: White count 16.8 hemoglobin 13.1 platelets 292 Assessment plan: -Right rotator cuff retear arthrobreathy with a right reverse total shoulder arthroplasty IV cefazolin for infection prophylaxis. Right arm in a sling. Pain control -Essential hypertension Hydrochlorothiazide -Primary osteoarthritis Tylenol as needed -GERD PPI -Obesity BMI 37.2 Weight loss measures Discussed with patient . Questions answered. Follow-up with PCP upon discharge Thank you Dr. Hastings Past Medical History Past Medical History: Cancer, GERD/Reflux, Hypertension, Osteoarthritis (OA) Additional Past Medical History / Comment(s): Fx LT ARM-12/11/16, osteoporosis, VULVA CANCER, History of Any Multi-Drug Resistant Organisms: None Reported Past Surgical History: Back Surgery, Section, Joint Replacement, Orthopedic Surgery, Tubal Ligation Additional Past Surgical History / Comment(s): back surgery X5 lft femur fx repair (jun 2022 [place] ) and 2nd surgery by Dr Hastings. COLONOSCOPY. BILAT TKA. Right knee arthroscopy. REPAIR TORN RT BICEP 04/2023 Past Anesthesia/Blood Transfusion Reactions: No Reported Reaction Past Psychological History: No Psychological Hx Reported Smoking Status: Former smoker Past Alcohol Use History: Occasional Additional Past Alcohol Use History / Comment(s): STARTED SMOKING AT AGE 15 QUIT IN 1999 SMOKED 2-3 CIG A DAY. DRINKS LESS THAN 7 DRINKS/WEEK., HX DRINKS 12- 18 BEERS PER WEEK IN SUMMER. Past Drug Use History: None Reported
== END 2023-11-23 12:14 | disposition home or self-care (01) ==
LOC: OR 11:11 → 4SSUR 15:10 → OR 11-23 12:14
PROVIDERS: ATTEND Orthopaedic Surgery
DX: M12.811 Other specific arthropathies, not elsewhere classified, right shoulder (principal); E66.9 Obesity, unspecified; G89.18 Other acute postprocedural pain; I10 Essential (primary) hypertension; K21.9 Gastro-esophageal reflux disease without esophagitis; M81.0 Age-related osteoporosis without current pathological fracture; Z68.37 Body mass index [BMI] 37.0-37.9, adult; Z85.44 Personal history of malignant neoplasm of other female genital organs; Z87.891 Personal history of nicotine dependence; Z88.0 Allergy status to penicillin; Z88.5 Allergy status to narcotic agent; Z98.51 Tubal ligation status
CPT/HCPCS: 64415; 85025; 73020; 23472; C1776; J2250; J1100; J0690 ×2; J2405; J1885

== ENCOUNTER → 2024-02-20 | Outpatient (CLI) | payer MEDICARE ==
--- NOTE | 2024-02-22 09:06 | MR ---
EXAMINATION TYPE: MR cervical spine wo con DATE OF EXAM: 02/20/2024 12:07 PM COMPARISON: NONE HISTORY: Neck pain into rt upper extremity Multiplanar MultiSpin echo imaging of the cervical spine was performed. Comparison: none C2-C3: Moderate disc desiccation with posterior disc bulge. Partially encapsulating spur resulting in right paracentral hard disc. There is right foraminal encroachment moderate in degree. Effacement ve ntral thecal sac without overt stenosis on the axial data set. C3-C4: Moderate disc desiccation moderate posterior disc bulge. Hard disc noted posteriorly centrally and posteriorly centrally and towards the left. There is mild central stenosis and moderate to sever e left foraminal encroachment. C4-C5: Moderate to severe disc desiccation posterior disc bulge. 3 mm anterior subluxation of C4 on C 5. Moderate central stenosis. Mild right foraminal encroachment. C5-C6: Disc desiccation with posterior disc bulge. Posterior central hard disc resulting in mild-to-m oderate central stenosis. Moderate right foraminal encroachment. C6-C7: Severe disc desiccation with left paracentral disc bulge and hard disc. There is distortion of the thecal sac and cervical spinal cord without compressive myelopathy. Mild central stenosis noted. Mild bilateral foraminal encroachment. C7-T1: No evidence for degenerative disc disease. No disc bulge/herniation or protrusion. No Canal stenosis. Foramina are patent bilaterally. Cervical segments are intact. There is normal alignment. Cervical spinal cord is of normal signal. Craniovertebral junction relationships are within normal limits. IMPRESSION: 1. Multilevel degenerative disc disease as discussed. 2. Multilevel central stenosis and foraminal encroachment as noted.
== END | disposition home or self-care (01) ==
LOC: RADMRIMAIN 11:23
PROVIDERS: ATTEND Psychiatry & Neurology Neurology
DX: M50.30 Other cervical disc degeneration, unspecified cervical region (principal); M48.02 Spinal stenosis, cervical region; M50.223 Other cervical disc displacement at C6-C7 level; G44.85 Primary stabbing headache
CPT/HCPCS: 72141

== ENCOUNTER → 2024-06-17 | Outpatient (CLI) | payer MEDICARE | END | disposition home or self-care (01) | LOC: RADNMMAIN 11:05 | PROVIDERS: ATTEND Neurological Surgery | DX: Z53.9 Procedure and treatment not carried out, unspecified reason (principal) ==

== ENCOUNTER → 2024-06-19 | Outpatient (CLI) | payer MEDICARE ==
[2024-06-19 16:20] LABS: Partial Thromboplastin Time 23.8 sec (22.0-30.0); Prothrombin Time 10.8 sec (10.0-12.5)
[2024-06-19 20:14] LABS: ALT 35 U/L (8-44); AST 31 U/L (13-35); Albumin 4.4 g/dL (3.8-4.9); Albumin/Globulin Ratio 1.69 Ratio (1.60-3.17); Alkaline Phosphatase 152 U/L (41-126); BUN/Creat Ratio 13.77 Ratio (12.00-20.00); Blood Urea Nitrogen 17.9 mg/dL (9.0-27.0); Carbon Dioxide 24.3 mmol/L (21.6-31.8); Chloride 103 mmol/L (96-109); Creatine Kinase 60 U/L (26-186); Globulin 2.6 g/dL (1.6-3.3); Glucose 104 mg/dL (70-110); Potassium 4.3 mmol/L (3.5-5.5); Rheumatoid Factor, Qnt 27 IU/mL (0-15); Sodium 140 mmol/L (135-145); Total Bilirubin 0.6 mg/dL (0.3-1.2)
[2024-06-19 20:43] LABS: Vitamin B12 >3600.0 pg/mL (200.0-944.0)
[2024-06-19 21:53] LABS: Basophils # (A) 0.04 X 10*3/uL (0.00-0.10); Basophils % (A) 0.7 %; Eosinophils # (A) 0.09 X 10*3/uL (0.04-0.35); Eosinophils % (A) 1.5 %; HCT 38.6 % (37.2-46.3); Lymphocytes # (A) 2.09 X 10*3/uL (0.90-5.00); Lymphocytes % (A) 34.3 %; MCH 29.9 pg (27.0-32.0); MCHC 33.7 g/dL (32.0-37.0); MCV 88.7 FL (80.0-97.0); Mean Platelet Volume 10.2 FL (9.5-12.2); Monocytes # (A) 0.87 X 10*3/uL (0.20-1.00); Monocytes % (A) 14.3 %; NRBC Per 100 WBC 0 X 10*3/uL (0.00-0.01); Neutrophils # (A) 2.98 X 10*3/uL (1.80-7.70); Neutrophils % (A) 48.9 %; Platelet Count 279 X 10*3/uL (140-440); RBC 4.35 X 10*6/uL (4.10-5.20); RDW 12.6 % (11.5-14.5); WBC 6.09 X 10*3/uL (4.50-10.00)
[2024-06-19 22:02] LABS: Erythrocyte Sedimentation Rate 19 mm/Hr (0-30)
[2024-06-20 02:34] LABS: Protein, Total 7.2 g/dL (6.2-8.2)
[2024-06-20 11:38] LABS: C-ANCA <1:20 Titer (<1:20)
== END | disposition home or self-care (01) ==
LOC: LABWHC1 15:42
PROVIDERS: ATTEND Psychiatry & Neurology Neurology
DX: R51.9 Headache, unspecified (principal)
CPT/HCPCS: 36415; 80053; 82550; 82607; 82747; 84165; 84443; 85025; 85610; 85652; 85730; 86038; 86140; 86255; 86431; 86618

== ENCOUNTER → 2024-10-24 | Outpatient (CLI) | payer MEDICARE ==
[2024-10-24 20:53] LABS: BUN/Creat Ratio 13.83 Ratio (12.00-20.00); Blood Urea Nitrogen 16.6 mg/dL (9.0-27.0); Calcium 10.7 mg/dL (8.7-10.3); Carbon Dioxide 20.1 mmol/L (21.6-31.8); Chloride 104 mmol/L (96-109); Glucose 125 mg/dL (70-110); Potassium 4.5 mmol/L (3.5-5.5); Sodium 139 mmol/L (135-145)
== END | disposition home or self-care (01) ==
LOC: LABWHC1 13:34
PROVIDERS: ATTEND Family Medicine
DX: E87.1 Hypo-osmolality and hyponatremia (principal)
CPT/HCPCS: 36415; 80048

== ENCOUNTER → 2024-11-25 | Outpatient (CLI) | payer MEDICARE ==
[2024-11-25 16:26] LABS: BUN/Creat Ratio 15.18 Ratio (12.00-20.00); Blood Urea Nitrogen 16.7 mg/dL (9.0-27.0); Calcium 9.9 mg/dL (8.7-10.3); Carbon Dioxide 23.1 mmol/L (21.6-31.8); Chloride 102 mmol/L (96-109); Glucose 103 mg/dL (70-110); Potassium 4.5 mmol/L (3.5-5.5); Sodium 137 mmol/L (135-145)
== END | disposition home or self-care (01) ==
LOC: LABWHC1 11:43
PROVIDERS: ATTEND Family Medicine
DX: E83.52 Hypercalcemia (principal); E87.6 Hypokalemia; R73.9 Hyperglycemia, unspecified
CPT/HCPCS: 36415; 80048; 83036; 83970